=== PATIENT | male | born 1940 | race African-American/Black ===

== ENCOUNTER → 2017-07-28 | Outpatient (CLI) | payer MEDICARE, OTHER | LOC: OD 09:32 | PROVIDERS: ATTEND Urology | DX: C61 Malignant neoplasm of prostate (principal); I10 Essential (primary) hypertension | CPT/HCPCS: 36415; 84066; 84153 ==

== ENCOUNTER → 2017-08-19 | Outpatient (CLI) | payer MEDICARE, OTHER ==
--- NOTE | 2017-08-19 14:56 | RADIOLOGY REPORT (SQ) ---
EXAM DESCRIPTION: NM WHOLE BODY BONE SCAN COMPLETED DATE/TIME: 08/19/2017 12:10 pm REASON FOR STUDY: I10 ESSENTIAL (PRIMARY) HYPERTENSION M19.90 UNSPECIFIED OSTEOARTHRITIS, UNS C61 M ALIGNANT NEOPLASM OF PROSTATE I10 ESSENTIAL (PRIMARY) HYPERTENSION M19.90 UNSPECIFIED OSTEOARTHRITI S, UNSPECIFIED SITE COMPARISON: No films available for comparison RADIONUCLIDE AND DOSE: 21.7 millicuries Tc99m MDP. The route of agent administration: Intravenous. ADDITIONAL DRUGS AND DOSES: None. TECHNIQUE: Routine delayed images at 3 hours post radionuclide injection acquired of the bony skelet on including anterior and posterior whole-body projections and additional focused images as needed. LIMITATIONS: None. FINDINGS: BONES: Bandlike increased uptake at the T6 level could indicate compression deformity. Minimal increased uptake at the acromioclavicular joints, shoulders, and ankles likely related to ost eoarthritis. Bare area at the right femoral head and right knee likely from joint hardware KIDNEYS: Symmetric excretion without obstruction. OTHER: No other significant finding. IMPRESSION: Bandlike increased uptake in the T6 level could indicate a compression deformity. No increased uptake around the right hip or right knee replacements worrisome for loosening or infect ion COMMENT: Quality measure 147: No available prior imaging studies for comparison TECHNICAL DOCUMENTATION: JOB ID: [id number] [employer]- All Rights Reserved
== END ==
LOC: RAD 08:13
PROVIDERS: ATTEND Urology
DX: C61 Malignant neoplasm of prostate (principal); I10 Essential (primary) hypertension
CPT/HCPCS: 78306; A9561; Q9969

== ENCOUNTER 2018-05-02 09:04 | Emergency (ER) | payer MEDICARE, OTHER ==
[2018-05-02 09:26] LABS: ABSOLUTE EOSINOPHILS # (AUTO) 0.1 10^3/uL (0.0-0.6); ABSOLUTE LYMPHOCYTES (AUTO) 2.3 10^3/uL (0.5-4.7); ABSOLUTE MONOCYTES (AUTO) 0.4 10^3/uL (0.1-1.4); ABSOLUTE NEUT (AUTO) 2.4 10^3/uL (1.7-8.2); BASOPHILS % (AUTO) 0.7 % (0-2); EOSINOPHILS % (AUTO) 2.7 % (0-6); HEMATOCRIT 46.9 % (37.9-51.0); HEMOGLOBIN 15.8 g/dL (13.5-17.0); LYMPHOCYTES % (AUTO) 42.9 % (13-45); MEAN CORPUSCULAR HEMOGLOBIN 32.3 pg (27.0-33.4); MEAN CORPUSCULAR HGB CONC 33.8 g/dL (32.0-36.0); MEAN CORPUSCULAR VOLUME 96 fl (80-97); MONOCYTES % (AUTO) 8.1 % (3-13); PLATELET COUNT 170 10^3/uL (150-450); RED CELL DISTRIBUTION WIDTH 14.1 % (11.5-14.0); SEGMENTED NEUTROPHILS % (AUTO) 45.6 % (42-78); TOTAL CELLS COUNTED % (AUTO) 100 %; WHITE BLOOD COUNT 5.3 10^3/uL (4.0-10.5)
--- NOTE | 2018-05-02 09:29 | RADIOLOGY REPORT (SQ) ---
EXAM DESCRIPTION: CT HEAD WITHOUT COMPLETED DATE/TIME: 05/02/2018 9:12 am REASON FOR STUDY: bed 18 stroke alert COMPARISON: None. TECHNIQUE: Axial images acquired through the brain without intravenous contrast. Images reviewed wi th bone, brain and subdural windows. Additional sagittal and coronal reconstructions were generated. Images stored on PACS. All CT scanners at this facility use dose modulation, iterative reconstruction, and/or weight based d osing when appropriate to reduce radiation dose to as low as reasonably achievable (ALARA). [facility]: Dose Right [facility]: CareDose [facility]: Dose Right [facility]: Teradose 4D [facility]: TeamPages RADIATION DOSE: 53 mGy. LIMITATIONS: None. FINDINGS: VENTRICLES: Normal size and contour. CEREBRUM: No masses. No hemorrhage. No midline shift. No evidence for acute infarction. Moderate d iffuse bifrontal and biparietal chronic appearing small vessel ischemic change in the hemispheric whi te matter. CEREBELLUM: No masses. No hemorrhage. No alteration of density. No evidence for acute infarction. EXTRAAXIAL SPACES: No fluid collections. No masses. ORBITS AND GLOBE: No intra- or extraconal masses. Normal contour of globe without masses. CALVARIUM: No fracture. PARANASAL SINUSES: No fluid or mucosal thickening. SOFT TISSUES: No mass or hematoma. OTHER: No other significant finding. IMPRESSION: Moderate chronic white matter disease. No acute intracranial hemorrhage mass effect or midline shift. No CT evidence of acute large territo ry ischemic change EVIDENCE OF ACUTE STROKE: NO. COMMENT: Pertinent findings on the imaging study reported as a CRITICAL RESULT to Dr Osuna at09:20 on 05/02/2018. Category of Critical Result: CT code stroke Quality ID # [id number]: Final reports with documentation of one or more dose reduction techniques (e.g., Au tomated exposure control, adjustment of the mA and/or kV according to patient size, use of iterative reconstruction technique) TECHNICAL DOCUMENTATION: JOB ID: [id number] [employer]- All Rights Reserved Reading location - IP/workstation name: [email or web address]
--- NOTE | 2018-05-02 09:29 | ER Document Report ---
ED [employer]te[employer]/Exc Criteria - Date/Time patient last known well: Date/Time: 11 pm LAST NIGHT - Date/Time patient arrived in ED: _: 0900 - Inclusion Criteria: 1: Patient presented to ED within 3 hours of acute ischemic stroke symptom onset ? -: No 2: Did baseline CT exclude intracranial hemorrhage and/or other risk factors? -: Yes 3: Is the age of the patient 18 years of age or greater? -: Yes : If any of the above questions are answered "NO" then stop, patient is not a candidate for Alteplase, : If all of the above questions are answered "YES" then continue with Exclusion Criteria. - Exclusion Criteria: 1: Is there evidence of intracranial hemorrhage on baseline CT? -: No 2: Is there suspicion of subarachnoid hemorrhage (even if CT negative)? -: No 3: Is there a history of serious head trauma, recent previous stroke or AR within 3 months? -: Yes 4: Does the patient have a clinical presentation consistent with AR or post-AR pericarditis? -: No 5: Is there history of intracranial hemorrhage? -: No 6: On repeated measurement is Systolic BP greater than 185mmHg or Diastolic BP greater that 110 mmHg and is aggressive treatment needed to reduce blood pressure to these limits (e.g. constant infusion of an anti-hypertensive)? -: No 7: Did the patient awake with stroke symptoms? -: Yes 8: Has the patient had a lumbar puncture or an arterial puncture at a non- compressile site within 7 days? -: No 9: With in the last 14 days did the patient have surgery or major trauma? -: No 10: Is the patient or less than 2 weeks? -: No 11: Was there any active bleeding or acute trauma? -: No 12: Does the patient have intracranial neoplasm, arteriovenous malformation or aneurysm? -: No 13: Does the patient have abnormal glucose (less than 50 or greater than 400mg/ dl)? Record glucose in Comment. -: No 14: Patient has rapidly improving symptoms at the time Alteplase is to be Administered. -: No 15: Does the patient have any risks for bleeding, including but not limited to: a.: Current use of Coumadin with PT greater than 15 seconds or INR greater than 1.7. b.: Current use of Pradaxa (Dabigatran). c.: Heparin administereed within the past 48 hours and PTT elevated. d.: Platelet count less than 100,000/mm. e.: Major surgery or serious trauma within 14 days. f.: Gastrointestinal or gynecological urinary bleeding within 14 days. g.: Myocardial Infarction (AR) within 3 months. -: Yes : If the answer to any of the above questions is "YES" then stop, the patient is not a candidate for Alteplase. : If the answer to all of the above questions is "NO" then the patient may be eligible for the Administration of Alteplase. : If the patient is noted to have seizure activity at onset of Stroke symptoms; Consult Neurologist for further evaluation. - The patient is: -: Included and is eligible to receive Alteplase. *Initiate bed placement at higher level of care* Reviewed risks & benefits of thrombolytic therapy: I have reviewed the risks and benefits of thrombolytic therapy with the patient and/or his/her family. -: Excluded and not eligible to receive Alteplase for the above exclusions. -: Excluded and not eligible to receive Alteplase for other reasons (specify in comments): - Diagnosis of TIA: -: Patient presented with transient symptoms that are now resolved and no other neurologic findings are currently present. List symptoms in comments. -: Patient is NOT a candidate for tPA. -: ____(put name in comment) has been consulted for admission and continued evaluation of risk factor assessment.
[2018-05-02 09:30] LABS: INTERNATIONAL RATION (INR) 0.98
--- NOTE | 2018-05-02 09:30 | RADIOLOGY REPORT (SQ) ---
EXAM DESCRIPTION: CHEST SINGLE VIEW COMPLETED DATE/TIME: 05/02/2018 9:17 am REASON FOR STUDY: bed 18 stroke alert COMPARISON: None. EXAM PARAMETERS: NUMBER OF VIEWS: One view. TECHNIQUE: Single frontal radiographic view of the chest acquired. RADIATION DOSE: NA LIMITATIONS: None. FINDINGS: LUNGS AND PLEURA: No opacities, masses or pneumothorax. No pleural effusion. MEDIASTINUM AND HILAR STRUCTURES: No masses. Contour normal. HEART AND VASCULAR STRUCTURES: Heart normal in size. Normal vasculature. BONES: No acute findings. Old left posterior 6th and 7th rib fractures HARDWARE: None in the chest. OTHER: No other significant finding. IMPRESSION: NO ACUTE RADIOGRAPHIC FINDING IN THE CHEST. TECHNICAL DOCUMENTATION: JOB ID: [id number] [employer]- All Rights Reserved Reading location - IP/workstation name: [email or web address]
[2018-05-02 09:31] LABS: PARTIAL THROMBOPLASTIN TIME 27.9 SEC (23.5-35.8)
--- NOTE | 2018-05-02 09:31 | ER Document Report ---
ED General - General Chief Complaint: S/S of Possible Stroke Stated Complaint: POSSIBLE STROKE Time Seen by Provider: 05/02/18 09:17 Mode of Arrival: Medic Information source: Patient, Relative TRAVEL OUTSIDE OF THE [place] IN LAST 30 DAYS: No - HPI Patient complains to provider of: STROKE Onset: Other - 78-year-old male with a history of hypertension as well as atrial fibrillation currently on Eliquis presents for evaluation of strokelike symptoms with an unknown onset, he had gone to bed last night at approximately 11 PM at which she was last seen well, this morning his fiance notes that upon waking up at around 8:30 AM the patient had been up doing some household activities she found him on the couch sitting he was unable to speak and unable to move his right arm or walk. She is uncertain what time he had gotten up in the night. She notes that he had a fall yesterday and hit his head in the shower , he was able to get up thereafter and had no other symptoms. - Related Data Allergies/Adverse Reactions: No Known Allergies Allergy (Verified 05/02/18 09:19) Past Medical History - General Information source: Patient, Relative, Emergency Med Personnel - Social History Smoking Status: Current Every Day Smoker Family History: Reviewed & Not Pertinent Review of Systems - Review of Systems -: Yes ROS unobtainable due to patient's medical condition Physical Exam - Vital signs Vitals: Pulse Ox 97 05/02/18 09:15 Course - Re-evaluation Re-evalutation: Emergently evaluated this patient in CT scanner, this is a [age]-year-old man who presents for evaluation of a aphasia, confusion, and inability to move his right arm. Examination this patient's NIH stroke scale is a 12. He is able to breathe spontaneously, there is no sonorous component to his breathing. Per his spouse the last time she saw him normal was yesterday, approximately 10 hours prior to arrival. Emergent CT did not demonstrate any obvious intracranial hemorrhage. Obtained EKG from patient which did demonstrate atrial fibrillation. Believe this patient likely has an ischemic stroke, will consult for further evaluation. 05/02/18 09:30 NIH stroke scale12 Called [facility] transfer line 9:20 Patient without an obvious last known well within the last 4 hours, is on Eliquis, has had head trauma in the last 2 days thus believe he is a poor candidate at this time for TPA. We will discuss with neurologist. 05/02/18 10:[address] Cesia TODD at [facility], they are in agreement at this time the patient is a poor candidate for TPA administration, as he has had symptoms less than 24 hours we will plan for emergent transfer via air care for possible intervention. On transfer patient noted to have a slightly worsening expressive aphasia what now seems to be some element of receptive aphasia. His stroke scale continues to be approximately 12. Patient to be transferred via critical care transport, continued monitoring without any intervention undertaken at this time. His blood pressure is less than 170, he is received a per rectum aspirin at this time. The time of transfer this patient was hemodynamically stable with a progressively worsening NIH score. He was persistently 12 with a now receptive aphasia in addition to expressive aphasia. Patient to be transported for further intervention at [facility]. Deferred administration of TPA per reasons above. - Vital Signs Vital signs: Temp Pulse Resp BP Pulse Ox 98.1 F 96 18 165/106 H 98 05/02/18 10:23 05/02/18 09:17 05/02/18 10:21 05/02/18 10:21 05/02/18 10:21 - Laboratory Result Diagrams: 05/02/18 09:10 05/02/18 09:10 Laboratory results interpreted by me: 05/02/18 05/02/18 05/02/18 09:10 09:10 09:23 RDW 14.1 H Chloride 109 H Creatinine 1.38 H Est GFR (Non-Af Amer) 50 L Glucose 111 H POC Glucose 119 H Critical Care Note - Critical Care Note Total time excluding time spent on procedures (mins): 45 Discharge - Discharge Clinical Impression: CVA (cerebral vascular accident) Qualifiers: CVA mechanism: unspecified Qualified Code(s): I63.9 - Cerebral infarction, unspecified Condition: Critical Disposition: [facility] Referrals: ANDREW ISLAS MD [NO LOCAL MD] - Follow up as needed
[2018-05-02 09:33] LABS: PROTHROMBIN TIME 13.5 SEC (11.4-15.4)
[2018-05-02] MEDS ORDERED: ASPIRIN 300 MG SUPP, RECTAL PR ONE (09:43)
[2018-05-02 09:46] LABS: ALANINE AMINOTRANSFERASE 21 U/L (21-72); ALBUMIN 4.2 g/dL (3.5-5.0); ALKALINE PHOSPHATASE 61 U/L (38-126); ANION GAP 10 (5-19); ASPARTATE AMINO TRANSFERASE 27 U/L (17-59); BILIRUBIN,DIRECT 0.3 mg/dL (0.0-0.4); BILIRUBIN,TOTAL 1.1 mg/dL (0.2-1.3); BLOOD UREA NITROGEN 14 mg/dL (7-20); CALCIUM 8.8 mg/dL (8.4-10.2); CARBON DIOXIDE 25 mmol/L (22-30); CHLORIDE 109 mmol/L (98-107); CREATINE KINASE 168 U/L (55-170); GLUCOSE 111 mg/dL (75-110); POTASSIUM 3.8 mmol/L (3.6-5.0); SODIUM 144.4 mmol/L (137-145); TOTAL PROTEIN 7.9 g/dL (6.3-8.2)
[2018-05-02 10:17] LABS: TROPONIN I < 0.012 ng/mL
[2018-05-02 10:24] VITALS: BP 165/106
--- NOTE | 2018-05-02 10:53 | EKG REPORT ---
SEVERITY:- ABNORMAL ECG - ATRIAL FIBRILLATION, V-RATE 60-138 NONSPECIFIC T ABNORMALITIES, DIFFUSE LEADS : Confirmed by: Roger Ricketts MD 02-May-2018 10:52:30
== END 2018-05-02 10:33 | disposition short-term general hospital (02) ==
LOC: ER 09:04
DX: I63.9 Cerebral infarction, unspecified (principal); R47.9 Unspecified speech disturbances; W18.2XXA Fall in (into) shower or empty bathtub, initial encounter; F17.200 Nicotine dependence, unspecified, uncomplicated; I10 Essential (primary) hypertension; Z79.01 Long term (current) use of anticoagulants; I48.91 Unspecified atrial fibrillation
CPT/HCPCS: 93005; 99285; 36415; 82553; 82962; 82550; 85025; 85610; 85730; 80053; 84484; 71045; 70450; 93010; A9270; J3490

== ENCOUNTER 2018-08-14 09:22 | Emergency (ER) | payer MEDICARE, OTHER ==
[2018-08-14 09:30] VITALS: BP 128/76
--- NOTE | 2018-08-14 09:47 | ER Document Report ---
HPI - HPI Patient complains to provider of: Medication refill Time Seen by Provider: 08/14/18 09:32 Onset: This morning Onset/Duration: Gradual Quality of pain: No pain Pain Level: Denies Context: Patient states that he recently had a stroke in April of this year and had gone to rehab until last month. Patient states when he was in rehab the physician at that facility was riding his medications. Patient states since being discharged he has had difficulty in getting up with his primary doctor as they had changed their hours and another physician is covering. Patient states that he is out of his Eliquis and amlodipine. Patient states he has all of his other medications. Patient denies any problems or complaints aside from needing his medications refilled. Associated Symptoms: None Exacerbated by: Denies Relieved by: Denies Similar symptoms previously: No Recently seen / treated by doctor: No - ROS ROS below otherwise negative: Yes Systems Reviewed and Negative: Yes All other systems reviewed and negative - CONSTITUTIONAL Constitutional: DENIES: Fever, Chills - RESPIRATORY Respiratory: DENIES: Trouble Breathing, Coughing - GASTROINTESTINAL Gastrointestinal: DENIES: Nausea - DERM Skin Color: Normal Skin Problems: None Past Medical History - General Information source: Patient - Social History Smoking Status: Never Smoker Frequency of alcohol use: None Drug Abuse: None Lives with: Family Family History: Reviewed & Not Pertinent - Past Medical History Cardiac Medical History: Reports: Hx Hypercholesterolemia, Hx Hypertension Neurological Medical History: Reports: Hx Cerebrovascular Accident Renal/ Medical History: Denies: Hx Peritoneal Dialysis Surgical Hx: Negative Vertical Provider Document - CONSTITUTIONAL Agree With Documented VS: Yes Exam Limitations: No Limitations General Appearance: WD/WN, No Apparent Distress - INFECTION CONTROL TRAVEL OUTSIDE OF THE [place] IN LAST 30 DAYS: No - HEENT HEENT: Atraumatic, Normocephalic - NECK Neck: Normal Inspection, Supple - RESPIRATORY Respiratory: Breath Sounds Normal, No Respiratory Distress - CARDIOVASCULAR Cardiovascular: Regular Rate, Regular Rhythm - GI/ABDOMEN Gastrointestinal: Abdomen Soft - BACK Back: Normal Inspection - NEURO Level of Consciousness: Awake, Alert, Appropriate Motor/Sensory: No Motor Deficit - DERM Integumentary: Warm, Dry, No Rash Course - Re-evaluation Re-evalutation: 08/14/[address] Pitts who recommends giving patient a 2-week supply of his medications to bridge until he can see his doctor. - Vital Signs Vital signs: Temp Pulse Resp BP Pulse Ox 97.3 F 71 18 128/76 H 98 08/14/18 09:26 08/14/18 09:26 08/14/18 09:26 08/14/18 09:26 08/14/18 09:26 Discharge - Discharge Clinical Impression: Medication refill, History of CVA (cerebrovascular accident) HTN (hypertension) Qualifiers: Hypertension type: unspecified Qualified Code(s): I10 - Essential (primary) hypertension Condition: Stable Disposition: HOME, SELF-CARE Additional Instructions: Return immediately for any new or worsening symptoms Followup with your primary care provider, call tomorrow to make a followup appointment Your primary doctor needs to be the one to refill your medications, call their office tomorrow and let them know that you were out of your medications and need a refill. Prescriptions: Amlodipine Besylate [Norvasc 2.5 mg Tablet] 2.5 mg PO DAILY #15 tablet Apixaban [Eliquis 5 mg Tablet] 5 mg PO BID #30 tablet Referrals: LUCY BLISS DO [Primary Care Provider] - Follow up as needed YUNG DUENAS DO [NO LOCAL MD] - Follow up tomorrow
== END 2018-08-14 10:00 | disposition home or self-care (01) ==
LOC: ER 09:22
DX: Z76.0 Encounter for issue of repeat prescription (principal); Z86.73 Personal history of transient ischemic attack (TIA), and cerebral infarction without residual deficits; T45.516A Underdosing of anticoagulants, initial encounter; I10 Essential (primary) hypertension; T46.1X6A Underdosing of calcium-channel blockers, initial encounter; Z91.128 Patient's intentional underdosing of medication regimen for other reason; Z91.14 Patient's other noncompliance with medication regimen
CPT/HCPCS: 99281

== ENCOUNTER 2019-01-12 23:42 | Emergency (ER) | payer MEDICARE, OTHER ==
--- NOTE | 2019-01-13 06:44 | RADIOLOGY REPORT (SQ) ---
EXAM: CT head without IV contrast CLINICAL DATA: fall on thinners TECHNICAL DATA: Multiple axial CT images of the brain were performed followed by sagittal and coronal reconstructed images. The CT study is performed according to ALARA (as low as reasonably achievable) or ALARA/IMAGE GENTLY, with automatic adjustment of mA and/or kV according to patient size. Performed on: 01/13/2019 00:00 Comparisons: Head CT performed on 05/02/2018. FINDINGS: There is no evidence of mass, acute mass effect or midline shift. There are no acute extra-axial fluid collections. There is no evidence of acute intracranial hemorrhage. The cerebral sulci and ventricles are prominent consistent with moderate cerebral volume loss. There are moderate subcortical and periventricular areas of low attenuation most consistent with moderate chronic microangiopathy. There is encephalomalacia in the posterior left frontal lobe. There is trace mucosal thickening of the paranasal sinuses. The mastoid air cells are clear. The orbital contents are grossly unremarkable. No acute osseous abnormalities are identified. No focal soft tissue abnormalities are identified. IMPRESSION: 1. There is no evidence of acute intracranial pathology. 2. Moderate cerebral volume loss with findings consistent with chronic microangiopathy. There is encephalomalacia in the posterior left frontal lobe which is new since the prior study.
--- NOTE | 2019-01-13 06:52 | RADIOLOGY REPORT (SQ) ---
EXAM: CT cervical spine without IV contrast CLINICAL DATA: 78-year-old male status post fall. TECHNICAL DATA: Multiple high-resolution thin axial CT images were performed through the cervical spine followed by sagittal and coronal reconstructed images. The CT study is performed according to ALARA (as low as reasonably achievable) or ALARA/IMAGE GENTLY, with automatic adjustment of mA and/or kV according to patient size. Performed on: 01/13/2019 at 6:08 AM COMPARISONS: None. FINDINGS: The cervical vertebrae are normal in height. There is straightening of the normal cervical lordosis. There is marked disc space narrowing throughout the cervical spine most pronounced at C3-C4 through C7-T1. Bone mineralization is normal. The atlanto-axial articulation is preserved and the odontoid process is intact. There is normal alignment of the facet joints on the parasagittal images. There is no evidence of acute fracture or subluxation. There is multilevel mild to moderate canal stenosis secondary to multiple disc osteophyte complexes. Stenosis is most pronounced at C4-C5 and C5-C6. There is multilevel bilateral neural foraminal stenosis secondary to uncovertebral joint and facet joint hypertrophy.. The paravertebral and paraspinal soft tissues are unremarkable. The lung apices are clear. IMPRESSION: 1. No evidence of acute osseous injury involving the cervical spine. 2. Straightening of the normal cervical lordosis. 3. 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
[2019-01-13 07:33] LABS: ABSOLUTE EOSINOPHILS # (AUTO) 0.1 10^3/uL (0.0-0.6); ABSOLUTE MONOCYTES (AUTO) 0.5 10^3/uL (0.1-1.4); ABSOLUTE NEUT (AUTO) 1.9 10^3/uL (1.7-8.2); BASOPHILS % (AUTO) 0.9 % (0-2); HEMATOCRIT 46.6 % (37.9-51.0); HEMOGLOBIN 15.3 g/dL (13.5-17.0); MEAN CORPUSCULAR HEMOGLOBIN 31.3 pg (27.0-33.4); MEAN CORPUSCULAR HGB CONC 32.8 g/dL (32.0-36.0); MEAN CORPUSCULAR VOLUME 96 fl (80-97); MONOCYTES % (AUTO) 10.1 % (3-13); PLATELET COUNT 151 10^3/uL (150-450); RED BLOOD COUNT 4.88 10^6/uL (4.35-5.55); RED CELL DISTRIBUTION WIDTH 14.5 % (11.5-14.0); TOTAL CELLS COUNTED % (AUTO) 100 %; WHITE BLOOD COUNT 4.5 10^3/uL (4.0-10.5)
--- NOTE | 2019-01-13 07:41 | EKG REPORT ---
SEVERITY:- ABNORMAL ECG - ATRIAL FIBRILLATION, V-RATE 66-115 VENTRICULAR PREMATURE COMPLEX NONSPECIFIC T ABNORMALITIES, LATERAL LEADS, UNCHANGED : Confirmed by: Roger Ricketts MD 13-Jan-2019 07:40:19
[2019-01-13 07:46] LABS: ALANINE AMINOTRANSFERASE 26 U/L (21-72); ALKALINE PHOSPHATASE 76 U/L (38-126); ANION GAP 9 (5-19); ASPARTATE AMINO TRANSFERASE 21 U/L (17-59); BILIRUBIN,DIRECT 0.2 mg/dL (0.0-0.4); BILIRUBIN,TOTAL 0.8 mg/dL (0.2-1.3); BLOOD UREA NITROGEN 13 mg/dL (7-20); CALCIUM 9.2 mg/dL (8.4-10.2); CARBON DIOXIDE 26 mmol/L (22-30); CHLORIDE 107 mmol/L (98-107); CREATINE KINASE 153 U/L (55-170); GLUCOSE 74 mg/dL (75-110); TOTAL PROTEIN 7.2 g/dL (6.3-8.2)
[2019-01-13 07:48] LABS: ALCOHOL < 10 mg/dL (NONE DETECTED)
[2019-01-13 08:02] LABS: APPEARANCE,URINE CLEAR; BILIRUBIN,URINE NEGATIVE (NEGATIVE); COLOR,URINE YELLOW; GLUCOSE, URINE NEGATIVE (NEGATIVE); KETONES,URINE NEGATIVE (NEGATIVE); LEUKOCYTE ESTERASE,URINE NEGATIVE (NEGATIVE); NITRITE,URINE NEGATIVE (NEGATIVE); PROTEIN,URINE NEGATIVE (NEGATIVE); URINE SPECIFIC GRAVITY 1.016
[2019-01-13 08:31] VITALS: BP 157/110
--- NOTE | 2019-01-13 14:21 | ER Document Report ---
Entered by ELIAS BEST SCRIBE 01/13/19 0658 Acting as scribe for:JOE ALVARES MD ED Fall - General Chief Complaint: Fall Stated Complaint: FALL/ETOH Time Seen by Provider: 01/13/19 06:49 Notes: Patient is a 78-year-old male that presents the emergency department complaining of a fall after drinking alcohol. Patient states that he had about a 5th of [place], and he lost his balance then he "rolled into" the bathtub and could not get up. Patient states that he had trouble getting up due to left sided deficit due to a cerebrovascular accident he had in April 2018. Patient states that his found him and helped him up then brought him to the emergency department at 23:00 last night. Patient denies any pain. Patient states that the only medication he is taking is eliquis for his atrial-fibrillation. TRAVEL OUTSIDE OF THE [place] IN LAST 30 DAYS: No - Related data Allergies/Adverse Reactions: No Known Allergies Allergy (Verified 05/02/18 09:19) Past Medical History - General Information source: Patient - Social History Smoking Status: Current Every Day Smoker Frequency of alcohol use: Heavy Drug Abuse: None Family History: Reviewed & Not Pertinent Patient has suicidal ideation: No Patient has homicidal ideation: No - Past Medical History Cardiac Medical History: Reports: Hx Hypercholesterolemia, Hx Hypertension Neurological Medical History: Reports: Hx Cerebrovascular Accident Review of Systems - Review of Systems Constitutional: No symptoms reported EENT: No symptoms reported Cardiovascular: No symptoms reported Respiratory: No symptoms reported Gastrointestinal: No symptoms reported Genitourinary: No symptoms reported Male Genitourinary: No symptoms reported Musculoskeletal: No symptoms reported Skin: No symptoms reported Hematologic/Lymphatic: No symptoms reported Neurological/Psychological: See HPI, Other - Loss of balance -: Yes All other systems reviewed and negative Physical Exam - Vital signs Vitals: Temp Pulse Resp BP Pulse Ox 98.1 F 82 16 114/74 98 01/13/19 00:03 01/13/19 00:03 01/13/19 00:03 01/13/19 00:03 01/13/19 00:03 - Notes Notes: Physical Exam: General: Alert, appears well. HEENT: Normocephalic. Atraumatic. PERRL. Extraocular movements intact. Oropharynx clear. Neck: Supple. Non-tender. Respiratory: No respiratory distress. Clear and equal breath sounds bilaterally. Cardiovascular: Regular rate and rhythm. Abdominal: Normal Inspection. Non-tender. No distension. Normal Bowel Sounds. Back: Non-tender. No deformity or step off. Extremities: Moves all four extremities. Upper extremities: Edema in right hand. Normal ROM. Lower extremities: Normal inspection. No edema. Normal ROM. Neurological: Normal cognition AAOx4. Preexisting right sided deficits at baseline. Slurred speech. Psychological: Normal affect. Normal Mood. Skin: Warm. Dry. Normal color. Course - Vital Signs Vital signs: Temp Pulse Resp BP Pulse Ox 97.4 F 70 16 157/110 H 99 01/13/19 08:30 01/13/19 08:30 01/13/19 08:30 01/13/19 08:30 01/13/19 08:30 - Laboratory Result Diagrams: 01/13/19 07:12 01/13/19 07:12 Laboratory results interpreted by me: 01/13/19 01/13/19 01/13/19 07:12 07:12 07:41 RDW 14.5 H Glucose 74 L Urine Urobilinogen 4.0 H - Diagnostic Test Radiology reviewed: Image reviewed, Reports reviewed - CT scans of the cervical spine and the head do not show acute processes. They show chronic changes. - EKG Interpretation by Me EKG shows normal: [place], Intervals, QRS Complexes. abnormal: ST-T Waves - Specific lateral T abnormalities Rate: Normal - 90 Rhythm: A.Fib Discharge - Discharge Clinical Impression: CVA, old, ataxia, Chronic atrial fibrillation Fall Qualifiers: Encounter type: initial encounter Qualified Code(s): W19.XXXA - Unspecified fall, initial encounter Condition: Stable Disposition: HOME, SELF-CARE Additional Instructions: No injuries were detected today from your fall. You should reconsider consuming alcohol, since you already have difficulty with balance and walking due to your stroke. Eat a good breakfast when you get home, drink plenty fluids, and get plenty of rest today. Follow-up with your doctor if any ongoing problems. RETURN TO THE EMERGENCY ROOM IF ANY NEW OR WORSENING SYMPTOMS. Scribe Attestation: 01/13/19 08:05 I personally performed the services described in the documentation, reviewed and edited the documentation which was dictated to the scribe in my presence, and it accurately records my words and actions. I personally performed the services described in the documentation, reviewed and edited the documentation which was dictated to the scribe in my presence, and it accurately records my words and actions.
== END 2019-01-13 08:31 | disposition home or self-care (01) ==
LOC: ER 23:42
DX: Z04.3 Encounter for examination and observation following other accident (principal); I48.91 Unspecified atrial fibrillation; I48.2 Chronic atrial fibrillation; Z79.01 Long term (current) use of anticoagulants; I69.393 Ataxia following cerebral infarction; F17.200 Nicotine dependence, unspecified, uncomplicated; I10 Essential (primary) hypertension; R47.81 Slurred speech
CPT/HCPCS: 36415; 70450; 72125; 80053; 80307; 81001; 82550; 84484; 85025; 93005; 93010; 99284

== ENCOUNTER 2019-04-11 06:20 | Day surgery (SDC) | payer MEDICARE, OTHER ==
[~2019-04-11 06:20] MED LIST: BUPIVACAINE HCL 0.75% INJ/PF (7.5 MG/1 ML) 10 ML SDV OS PRN; KETOROLAC TROMETHAMINE 0.45% 4 DROP/0.4 ML DROPERETTE OS PRN; LIDOCAINE 4% INJ/PF (40 MG/ML) 5 ML AMPUL OS PRN
[2019-04-11] MEDS ORDERED: FENTANYL CITRATE INJ/PF 100 MCG/2 ML AMPUL ONE (06:44)
[2019-04-11] MEDS ORDERED: MIDAZOLAM 2 MG/2 ML INJ ONE (06:44)
[2019-04-11] MEDS: CYCLOPENTOLATE 0.2%/PHENYLEPHRINE 1% OPH SOLN 2 ML OS PRN ×3 (06:50→07:10)
[2019-04-11] MEDS: TROPICAMIDE 1% OPH SOLN 3 ML OS PRN ×3 (06:50→07:10)
[2019-04-11] MEDS: BESIFLOXACIN HCL 0.6% OPH SUSP 5 ML BOTTLE OS PRN ×4 (06:50→07:58)
[2019-04-11] MEDS: TETRACAINE HCL 0.5% OPH SOLN 4 ML OS PRN ×2 (06:51→07:10)
[2019-04-11] MEDS ORDERED: EPINEPHRINE INJ/PF 1 MG/1 ML AMPULE ONE (07:16)
[2019-04-11] MEDS ORDERED: LIDOCAINE 1% INJ-PF (10 MG/ML) 30 ML SDV ONE (07:16)
[2019-04-11] MEDS ORDERED: CHONDR SU A NA/HYALUR INTRAOC KIT (SURGICARE) ONE (07:17)
[2019-04-11] MEDS: DORZOLAMIDE HCL 2%/TIMOLOL MALEAT 0.5% OPH SOLN 10 ML OS PRN ×2 (07:58)
--- NOTE | 2019-04-11 13:04 | Operative Report ---
Operative Report-[facility] Operative Report: DATE OF SURGERY: April 11, 2019 PREOPERATIVE DIAGNOSIS: CATARACT, LEFT EYE. POSTOPERATIVE DIAGNOSIS: CATARACT, LEFT EYE. PROCEDURE PERFORMED: PHACOEMULSIFICATION WITH POSTERIOR CHAMBER INTRAOCULAR LENS, LEFT EYE. Intraocular Lens Model : SN 60 WF 20.0 Total Phaco Time: 11.5 CDE SURGEON: KOBE MORENO MD ANESTHESIA: TOPICAL WITH MAC. INDICATIONS FOR SURGERY: Difficulty reading small print difficulty with night driving PROCEDURE: The patient was brought to the Operating Room and placed on the operative table. Following tetracaine drops, topical anesthesia was administered. This consisted of instrument wipe pledgets soaked in a solution of 4% Xylocaine mixed with 0.75% Marcaine in a 1:2 ratio. A 2 x 1 cm pledget was placed in the superior fornix. A 1 x 1 cm pledget was placed in the inferior fornix. The eye was patched shut for 5 minutes. The patch was removed. The eye was sterilely prepped and draped in the usual manner. Lid speculum was placed in the eye. The pledgets were removed. 4-0 black silk sutures were placed around the superior and the inferior rectus muscles to be used as traction. A conjunctival peritomy was made at the 10 o'clock position. Hemostasis was obtained with bipolar cautery. A posterior limbal groove was created using a crescent knife and dissected anteriorly towards the cornea. A sharp point blade was used to create a paracentesis site at the 2 o'clock position. 0.2 cc non preserved Lidocaine was injected into the anterior chamber. A 2.4 mm keratome was used to enter the anterior chamber through the groove. Viscoelastic was injected into the anteriorchamber. An anterior capsulotomy was performed using Utrata forceps in acapsulorrhexis fashion. Hydrodissection and hydrodelineation were performed. Phacoemulsification was performed in olyngj-zli-vtwpodo technique. Following this, the I/A unit was used to remove residual cortex. Viscoelastic was injected into the capsular bag. The Intraocular lens was placed in the capsular bag. The I/A unit was used to remove residual viscoelastic. The wound was seen to be watertight under high and low pressure, and no sutures were placed. The intraocular lens was well centered. The pressure was adjusted in the eye to normal pressure. The 4-0 black silk sutures and lid speculum were removed. The eye was shielded after Besivance and Cosopt drops were placed. The patient tolerated the procedure well and was sent to the Recovery Room in good condition.
--- NOTE | 2019-04-11 13:05 | PDOC DISCHARGE SUMMARY ---
Discharge Summary[facility] Discharge Summary: DATE: April 11, 2019 FINAL DIAGNOSIS: CATARACT, LEFT EYE PROCEDURE: Cataract surgery with intraocular lens implant left eye HOSPITAL COURSE: The patient will be discharged to home. The patient is instructed to resume preoperative medications, take Tylenol as needed for discomfort, to keep the eye shielded, They should use the prescribed antibiotic, NSAID, and steroid at 3 PM and 8 PM, and to follow up in my office in 1 day.
== END 2019-04-11 08:45 | disposition home or self-care (01) ==
LOC: SC 06:20
PROVIDERS: ATTEND Ophthalmology
DX: H25.813 Combined forms of age-related cataract, bilateral (principal); H40.053 Ocular hypertension, bilateral; H52.4 Presbyopia; I10 Essential (primary) hypertension; E78.00 Pure hypercholesterolemia, unspecified; Z79.899 Other long term (current) drug therapy; I69.851 Hemiplegia and hemiparesis following other cerebrovascular disease affecting right dominant side; Z79.01 Long term (current) use of anticoagulants; I48.91 Unspecified atrial fibrillation
CPT/HCPCS: 66984; J2250; J3490 ×5; A9270; J0171; J3010

== ENCOUNTER 2019-05-16 08:19 | Day surgery (SDC) | payer MEDICARE, OTHER ==
[~2019-05-16 08:19] MED LIST changes: +BUPIVACAINE HCL 0.75% INJ/PF (7.5 MG/1 ML) 10 ML SDV OD PRN; -BUPIVACAINE HCL 0.75% INJ/PF (7.5 MG/1 ML) 10 ML SDV OS PRN; +CHONDR SU A NA/HYALUR INTRAOC KIT (SURGICARE) ONE; +EPINEPHRINE INJ/PF 1 MG/1 ML AMPULE ONE; +KETOROLAC TROMETHAMINE 0.45% 4 DROP/0.4 ML DROPERETTE OD PRN; -KETOROLAC TROMETHAMINE 0.45% 4 DROP/0.4 ML DROPERETTE OS PRN; +LIDOCAINE 1% INJ-PF (10 MG/ML) 30 ML SDV ONE; +LIDOCAINE 4% INJ/PF (40 MG/ML) 5 ML AMPUL OD PRN; -LIDOCAINE 4% INJ/PF (40 MG/ML) 5 ML AMPUL OS PRN
[2019-05-16] MEDS: TETRACAINE HCL 0.5% OPH SOLN 4 ML OD PRN ×3 (08:54→09:29)
[2019-05-16] MEDS: TROPICAMIDE 1% OPH SOLN 15 ML OD PRN ×3 (08:55→09:16)
[2019-05-16] MEDS: CYCLOPENTOLATE 0.2%/PHENYLEPHRINE 1% OPH SOLN 2 ML OD PRN ×3 (08:55→09:16)
[2019-05-16] MEDS: BESIFLOXACIN HCL 0.6% OPH SUSP 5 ML BOTTLE OD PRN ×4 (08:55→09:53)
[2019-05-16] MEDS ORDERED: MIDAZOLAM 2 MG/2 ML INJ ONE (09:11)
[2019-05-16] MEDS: DORZOLAMIDE HCL 2%/TIMOLOL MALEAT 0.5% OPH SOLN 10 ML OD PRN ×2 (09:53)
--- NOTE | 2019-05-16 13:35 | Operative Report ---
Operative Report[facility] Operative Report: DATE OF SURGERY: 05/16/2019 PREOPERATIVE DIAGNOSIS: CATARACT, RIGHT EYE. POSTOPERATIVE DIAGNOSIS: CATARACT, RIGHT EYE. PROCEDURE PERFORMED: PHACOEMULSIFICATION WITH POSTERIOR CHAMBER INTRAOCULAR LENS, RIGHT EYE. Intraocular Lens Model : SN 6 0 WF 21.0 Total Phaco Time: 8.43 CDE SURGEON: KOBE MORENO MD ANESTHESIA: TOPICAL WITH MAC. INDICATIONS FOR SURGERY: Difficulty driving at night. PROCEDURE: The patient was brought to the Operating Room and placed on the operative table. Following tetracaine drops, topical anesthesia was administered. This consisted of instrument wipe pledgets soaked in a solution of 4% Xylocaine mixed with 0.75% Marcaine in a 1:2 ratio. A 2 x 1 cm pledget was placed in the superior fornix. A 1 x 1 cm pledget was placed in the inferior fornix. The eye was patched shut for 5 minutes. The patch was removed. The eye was sterilely prepped and draped in the usual manner. Lid speculum was placed in the eye. The pledgets were removed. 4-0 black silk sutures were placed around the superior and the inferior rectus muscles to be used as traction. A conjunctival peritomy was made at the 10 o'clock position. Hemostasis was obtained with bipolar cautery. A posterior limbal groove was created using a crescent knife and dissected anteriorly towards the cornea. A sharp point blade was used to create a paracentesis site at the 2 o'clock position. 0.2 cc non preserved Lidocaine was injected into the anterior chamber. A 2.4 mm keratome was used to enter the anterior chamber through the groove. Viscoelastic was injected into the anterior chamber. An anterior capsulotomy was performed using Utrata forceps in a capsulorrhexis fashion. Hydrodissection and hydrodelineation were performed. Phacoemulsification was performed in [id number]-bhh-[id number] technique. Following this, the I/A unit was used to remove residual cortex. Viscoelastic was injected into the capsular bag. The Intraocular lens was placed in the capsular bag. The I/A unit was used to remove residual viscoelastic. The wound was seen to be watertight under high and low pressure, and no sutures were placed. The intraocular lens was well centered. The pressure was adjusted in the eye to normal pressure. The 4-0 black silk sutures and lid speculum were removed. The eye was shielded after Besivance and Cosopt drops were placed. The patient tolerated the procedure well and was sent to the Recovery Room in good condition.
== END 2019-05-16 10:37 | disposition home or self-care (01) ==
LOC: SC 08:19
PROVIDERS: ATTEND Ophthalmology
DX: H25.811 Combined forms of age-related cataract, right eye (principal); Z96.1 Presence of intraocular lens; I10 Essential (primary) hypertension; I48.91 Unspecified atrial fibrillation; Z86.73 Personal history of transient ischemic attack (TIA), and cerebral infarction without residual deficits; Z79.899 Other long term (current) drug therapy; Z79.01 Long term (current) use of anticoagulants
CPT/HCPCS: 66984; 00142; V2632; J2250; J3490 ×5; A9270; J0171; 142

== ENCOUNTER 2020-07-29 04:51 | Emergency (ER) | payer MEDICARE, OTHER ==
--- NOTE | 2020-07-29 05:11 | ER Document Report ---
ED Medical Screen (RME) - General Chief Complaint: S/S of Possible Stroke Stated Complaint: SS OF STROKE Time Seen by Provider: 07/29/20 05:02 Primary Care Provider: LALITHA LONGORIA NP [Primary Care Provider] - Follow up as needed Notes: 80-year-old male comes by EMS from home for chief complaint of weakness. EMS was initially reporting that they were told he had right-sided weakness and slurred speech, however this was found to be chronic from previous CVA. On arrival they report he was diaphoretic and hypotensive in the 80s. Patient has received 600 cc fluid bolus and his blood pressure has normalized. Oxygen saturation 94% on room air upon arrival. Patient denies any complaints. No fever. TRAVEL OUTSIDE OF THE [place] IN LAST 30 DAYS: No - Related Data Allergies/Adverse Reactions: No Known Allergies Allergy (Verified 05/09/19 15:38) Past Medical History - Past Medical History Cardiac Medical History: Reports: Hx Hypercholesterolemia, Hx Hypertension - MEDS Denies: Hx Heart Attack Pulmonary Medical History: Denies: Hx Asthma Neurological Medical History: Reports: Hx Cerebrovascular Accident - 04/2018- SPEECH,RT SIDE-CANE. Denies: Hx Seizures Renal/ Medical History: Denies: Hx Peritoneal Dialysis GI Medical History: Denies: Hx Hepatitis, Hx Hiatal Hernia, Hx Ulcer Infectious Medical History: Denies: Hx Hepatitis Past Surgical History: Denies: Hx Open Heart Surgery, Hx Pacemaker Physical Exam - Respiratory Respiratory status: No respiratory distress Breath sounds: Other - Rales heard in bilateral lower lung bases but no tachypnea or respiratory distress Course - Re-evaluation Re-evalutation: Patient with right-sided weakness and slurred speech but reportedly these are chronic. He is no longer hypotensive, he is alert, cooperative, has no complaints. He has rales on exam. Work-up pending I have greeted and performed a rapid initial assessment of this patient. A comprehensive ED assessment and evaluation of the patient, analysis of test results and completion of the medical decision making process will be conducted by additional ED providers. Doctor's Discharge - Discharge Referrals: LALITHA LONGORIA NP [Primary Care Provider] - Follow up as needed
[2020-07-29 05:16] LABS: ABSOLUTE BASOPHILS # (AUTO) 0.1 10^3/uL (0.0-0.2); ABSOLUTE LYMPHOCYTES (AUTO) 1.6 10^3/uL (0.5-4.7); ABSOLUTE MONOCYTES (AUTO) 0.8 10^3/uL (0.1-1.4); ABSOLUTE NEUT (AUTO) 7.4 10^3/uL (1.7-8.2); BASOPHILS % (AUTO) 0.6 % (0-2); EOSINOPHILS % (AUTO) 0.4 % (0-6); HEMATOCRIT 42.7 % (37.9-51.0); HEMOGLOBIN 14.2 g/dL (13.5-17.0); LYMPHOCYTES % (AUTO) 16.3 % (13-45); MEAN CORPUSCULAR HEMOGLOBIN 31.8 pg (27.0-33.4); MEAN CORPUSCULAR HGB CONC 33.3 g/dL (32.0-36.0); MEAN CORPUSCULAR VOLUME 95 fl (80-97); MONOCYTES % (AUTO) 7.8 % (3-13); PLATELET COUNT 133 10^3/uL (150-450); RED BLOOD COUNT 4.47 10^6/uL (4.35-5.55); RED CELL DISTRIBUTION WIDTH 14.1 % (11.5-14.0); SEGMENTED NEUTROPHILS % (AUTO) 74.9 % (42-78); TOTAL CELLS COUNTED % (AUTO) 100 %; WHITE BLOOD COUNT 9.9 10^3/uL (4.0-10.5)
[2020-07-29 05:23] LABS: INTERNATIONAL RATION (INR) 1.11; PROTHROMBIN TIME 14.5 SEC (11.4-15.4)
--- NOTE | 2020-07-29 05:23 | RADIOLOGY REPORT (SQ) ---
CT of the head: 07/29/2020 4:21 AM BACKSIDE GRINDER HISTORY: 80-year-old patient with altered mental status. COMPARISON: CT the head from 01/13/2019 and 07/29/2020 TECHNIQUE: Multiple axial contiguous images were obtained through the head without intravenous contrast administered. This exam was performed according to our departmental dose-optimization program, which includes automated exposure control, adjustment of the mA and/or KV according to the patient's size and/or use of iterative reconstruction technique. FINDINGS: The ventricles and cerebral sulci demonstrate mild prominence, consistent with cerebral atrophy. There are mild periventricular hypodensities, suggestive of periventricular white matter changes. There is encephalomalacia again seen at the left frontal lobe. The desir-white matter differentiation is within normal limits. Both orbits appear unremarkable. The mastoid air cells appear clear. The visualized paranasal sinuses appear clear. The calvarium is intact. No extra-axial fluid collection is seen. No midline shift or mass effect is apparent. There are no findings to suggest acute intracranial hemorrhage. IMPRESSION: 1. No acute intracranial hemorrhage is seen. 2. Mild cerebral atrophy and periventricular white matter changes are seen.
[2020-07-29 05:50] LABS: VENOUS BLOOD BASE EXCESS -1.3 mmol/L; VENOUS BLOOD HCO3 23.7 mmol/L (20-32); VENOUS BLOOD PCO2 41.1 mmHg (35-63); VENOUS BLOOD PH 7.38 (7.30-7.42)
[2020-07-29 05:50] LABS: ALBUMIN 3.6 g/dL (3.5-5.0); ALKALINE PHOSPHATASE 66 U/L (38-126); ANION GAP 8 (5-19); ASPARTATE AMINO TRANSFERASE 31 U/L (17-59); BILIRUBIN,DIRECT 0.1 mg/dL (0.0-0.4); BILIRUBIN,TOTAL 1.4 mg/dL (0.2-1.3); BLOOD UREA NITROGEN 14 mg/dL (7-20); CALCIUM 8.8 mg/dL (8.4-10.2); CARBON DIOXIDE 25 mmol/L (22-30); CHLORIDE 106 mmol/L (98-107); GLUCOSE 137 mg/dL (75-110); POTASSIUM 4.4 mmol/L (3.6-5.0); TOTAL PROTEIN 6.5 g/dL (6.3-8.2)
--- NOTE | 2020-07-29 05:58 | RADIOLOGY REPORT (SQ) ---
AP Portable chest: 07/29/2020 4:56 AM INSIDE SALES ACCOUNT EXECUTIVE History: 80-year old patient with hypotension. Comparison: Chest radiograph from 05/02/2018 Findings: The cardiomediastinal silhouette is normal in size. No pneumothorax is seen. No acute airspace opacities are seen. No discrete pleural effusion is apparent. The lung volumes are low. There is suggestion of a few remote left-sided rib fractures present. This is similar to prior imaging. There is mild elevation of the right hemidiaphragm. Impression: No acute airspace opacities are seen.
[2020-07-29 06:12] LABS: NT PRO BNP 2170 pg/mL (<450)
[2020-07-29 06:14] LABS: TROPONIN I < 0.012 ng/mL
[2020-07-29] MEDS ORDERED: NORMAL SALINE 500 ML IV ONE (06:38)
--- NOTE | 2020-07-29 06:39 | EKG REPORT ---
SEVERITY:- ABNORMAL ECG - ATRIAL FIBRILLATION, V-RATE 77-135 ABNORMAL T, CONSIDER ISCHEMIA, DIFFUSE LEADS : Confirmed by: Roger Ricketts MD 29-Jul-2020 06:38:03
--- NOTE | 2020-07-29 06:46 | ER Document Report ---
ED General - General Chief Complaint: S/S of Possible Stroke Stated Complaint: SS OF STROKE Time Seen by Provider: 07/29/20 05:02 Primary Care Provider: LALITHA LONGORIA NP [Primary Care Provider] - Follow up as needed TRAVEL OUTSIDE OF THE [place] IN LAST 30 DAYS: No - HPI Notes: Patient is a 80-year-old male brought in the emergency department for evaluation via EMS for weakness. Evidently over the last several days he has not been really feeling well. He has had little in the way of appetite. He is just felt weak all over. Last night, he asked his to stay home as he was feeling even more weak. She tried to get him up to go to the bathroom at least 4 times. He was barely able to assist in any way. He denies any pain, with the exception of when he goes to urinate. No jaskaran hematuria to his knowledge. Denies any fevers or chills. No nausea or vomiting. Normal bowel movements. He has a chronic cough which she states is not worse than normal. He denies feeling short of breath, but his states that he has looked short of breath to her. Otherwise he said no changes in his medications. - Related Data Allergies/Adverse Reactions: No Known Allergies Allergy (Verified 05/09/19 15:38) Home Medications: Amlodipine. Elaquis. Metoprolol. Atrovastatin Past Medical History - General Information source: Patient, Relative, Emergency Med Personnel - Social History Smoking Status: Never Smoker Frequency of alcohol use: Social Family History: Reviewed & Not Pertinent - Past Medical History Cardiac Medical History: Reports: Hx Atrial Fibrillation, Hx Hypercholesterolemia, Hx Hypertension - MEDS Denies: Hx Heart Attack Pulmonary Medical History: Denies: Hx Asthma Neurological Medical History: Reports: Hx Cerebrovascular Accident - 04/2018- SPEECH,RT SIDE-CANE. Denies: Hx Seizures Renal/ Medical History: Denies: Hx Peritoneal Dialysis Malignancy Medical History: Reports Hx Prostate Cancer GI Medical History: Denies: Hx Hepatitis, Hx Hiatal Hernia, Hx Ulcer Infectious Medical History: Denies: Hx Hepatitis Past Surgical History: Denies: Hx Open Heart Surgery, Hx Pacemaker Review of Systems - Review of Systems Constitutional: See HPI EENT: No symptoms reported Cardiovascular: No symptoms reported Respiratory: No symptoms reported Gastrointestinal: No symptoms reported Genitourinary: See HPI Musculoskeletal: No symptoms reported Skin: No symptoms reported Neurological/Psychological: No symptoms reported Physical Exam - Vital signs Vitals: Resp Pulse Ox 23 H 93 07/29/20 04:59 07/29/20 04:59 - Notes Notes: This is a 80-year-old male appears stated age. He is mildly tachypneic and appears dyspneic. He is able to hold normal conversation. Vital signs reviewed, please refer to chart. Head is normocephalic, atraumatic. Pupils equal round, reactive to light. Neck is supple without meningismus. Heart is irregularly irregular. Lungs are clear to auscultation bilaterally. Abdomen is soft, nontender, normoactive bowel sounds throughout. Extremities without cyanosis, clubbing. Posterior calves are nontender. Peripheral pulses are equal. Skin is warm and dry. Patient is awake, alert, oriented x3. Cranial nerves II - XII are grossly intact without focal neurological deficits. Strength is plus 5 out of 5 bilateral upper and lower extremities. Sensation is intact. Reflexes symmetrical. Intact eguaob-bmex-jexpoj, rapid alternating movements, [id number]. Course - Re-evaluation Re-evalutation: 07/29/20 07:39 Patient presented to the emergency department for evaluation of increased weakness. He has some urinary symptoms. Initially he was hypotensive for EMS. He was given fluids and remained normotensive. He is mildly tachypneic. His laboratory investigations reveal large leukocyte esterase, blood and white blood cells in his urine. It was a traumatic catheterization bypassing the prostate. Given this and his symptoms, however, I do strongly suspect urinary tract infection. We will give a dose of IV Rocephin. Patient has had increasing weakness. We will have him ambulated in the department to evaluate for strength. He is currently stable, we will continue to monitor. 07/29/20 08:24 Patient was ambulated through the department with nursing. He states he feels a lot better. He was able to walk with a normal amount of assistance. He feels well enough to go home. He was given a dose of IV Rocephin. At this point he has no fever. He has no leukocytosis. His respiratory rate is not mildly, but he does not meet any septic criteria at this point. He is normotensive, normal lactic. I will send him home on Keflex with very close follow-up. He is told he will be contacted if his urine culture grows something that is not sensitive to the Keflex. He voiced understanding. Otherwise he is to follow-up with his primary care provider this week. He is to return to the ED with worsening or new concerning symptoms of any sort. - Vital Signs Vital signs: Temp Pulse Resp BP Pulse Ox 99.1 F 100 32 H 145/88 H 100 07/29/20 07:00 07/29/20 05:16 07/29/20 07:02 07/29/20 07:02 07/29/20 07:02 - Laboratory Result Diagrams: 07/29/20 05:04 07/29/20 05:04 Laboratory results interpreted by me: 07/29/20 07/29/20 07/29/20 05:04 05:04 05:04 RDW 14.1 H Plt Count 133 L Creatinine 1.29 H Est GFR (MDRD) Non-Af 54 L Glucose 137 H Total Bilirubin 1.4 H NT-Pro-B Natriuret Pep 2170 H Urine Protein Urine Blood Urine Urobilinogen Leukocyte Esterase Rfl 07/29/20 07:00 RDW Plt Count Creatinine Est GFR (MDRD) Non-Af Glucose Total Bilirubin NT-Pro-B Natriuret Pep Urine Protein 100 H Urine Blood LARGE H Urine Urobilinogen 4.0 H Leukocyte Esterase Rfl LARGE H Discharge - Discharge Clinical Impression: Generalized weakness Urinary tract infection Qualifiers: Urinary tract infection type: site unspecified Hematuria presence: with hematuria Qualified Code(s): N39.0 - Urinary tract infection, site not specified; R31.9 - Hematuria, unspecified Condition: Stable Disposition: HOME, SELF-CARE Instructions: Urinary Tract Infection ([facility]), Cephalexin ([facility]) Additional Instructions: Please take all the antibiotics as prescribed until they are gone. Rest. Stay well-hydrated. Follow-up with your primary care provider in 1 to 2 days. If you develop fevers, vomiting, or new or concerning symptoms of any sort, please return immediately to the emergency department for evaluation. Referrals: LALITHA LONGORIA ENVIRONMENTAL SERVICES ASSISTANT [Primary Care Provider] - Follow up as needed
[2020-07-29 07:22] VITALS: BP 145/88
[2020-07-29 07:32] LABS: APPEARANCE,URINE CLOUDY; BILIRUBIN,URINE NEGATIVE (NEGATIVE); COLOR,URINE YELLOW; GLUCOSE, URINE NEGATIVE (NEGATIVE); KETONES,URINE NEGATIVE (NEGATIVE); PROTEIN,URINE 100 mg/dL (NEGATIVE); URINE SPECIFIC GRAVITY 1.018
[2020-07-29] MEDS ORDERED: CEFTRIAXONE 1 GM/D5W RTU 1 GM/50 ML RTUPB IV ONE (07:45)
== END 2020-07-29 09:11 | disposition home or self-care (01) ==
LOC: ER 04:51
DX: N39.0 Urinary tract infection, site not specified (principal); R31.9 Hematuria, unspecified; R53.1 Weakness; R63.0 Anorexia; R05 Cough; R06.82 Tachypnea, not elsewhere classified; Z79.899 Other long term (current) drug therapy; Z79.01 Long term (current) use of anticoagulants; I48.91 Unspecified atrial fibrillation; I10 Essential (primary) hypertension
CPT/HCPCS: 93005; 99285; 96361; 96365; 36415; 87040; 87086; 83605; 85025; 85610; 87088; 80053; 81001; 84484; 82803; 83880; 71045; 70450; 93010; J7040; J0696; 87186

== ENCOUNTER 2020-07-29 17:11 | Inpatient (IN) | payer MEDICARE ==
[2020-07-29] MEDS ORDERED: CEFTRIAXONE 1 GM/D5W RTU 1 GM/50 ML RTUPB IV ONE (17:50)
--- NOTE | 2020-07-29 17:50 | ER Document Report ---
ED Medical Screen (RME) - General Chief Complaint: Penile Bleeding Stated Complaint: BLEEDING FROM PENIS Time Seen by Provider: 07/29/20 17:42 Primary Care Provider: LALITHA LONGORIA NP [Primary Care Provider] - Follow up as needed Mode of Arrival: Medic Information source: Patient, Relative Notes: 80-year-old male presents to ED for complaint of not being able to walk and blood from his penis. He states he was seen last night for severe weakness and diaphoresis. He states that he woke up in the night and walked from the bathroom to the bedroom and was profusely sweating and was very weak and able unable to get back up so he called 911 and came to the emergency room. He states while he was in the emergency room he had a Boyd catheter and he has been bleeding off and on since getting home. He does have minimal bleeding around the penis at this time. He states he cannot bear weight on either leg and cannot walk at all since early this morning. states that he cannot stay home when he cannot walk at all. I have greeted and performed a rapid initial assessment of this patient. A comprehensive ED assessment and evaluation of the patient, analysis of test results and completion of medical decision making process will be conducted by an additional ED providers. TRAVEL OUTSIDE OF THE [place] IN LAST 30 DAYS: No - Related Data Allergies/Adverse Reactions: No Known Allergies Allergy (Verified 05/09/19 15:38) Past Medical History - Past Medical History Cardiac Medical History: Reports: Hx Atrial Fibrillation, Hx Hypercholesterolemia, Hx Hypertension - MEDS Denies: Hx Heart Attack Pulmonary Medical History: Denies: Hx Asthma Neurological Medical History: Reports: Hx Cerebrovascular Accident - 04/2018- SPEECH,RT SIDE-CANE. Denies: Hx Seizures Renal/ Medical History: Denies: Hx Peritoneal Dialysis Malignancy Medical History: Reports Hx Prostate Cancer GI Medical History: Denies: Hx Hepatitis, Hx Hiatal Hernia, Hx Ulcer Infectious Medical History: Denies: Hx Hepatitis Past Surgical History: Denies: Hx Open Heart Surgery, Hx Pacemaker Course - Laboratory Result Diagrams: 07/29/20 17:29 07/29/20 17:29 Doctor's Discharge - Discharge Referrals: LALITHA LONGORIA NP [Primary Care Provider] - Follow up as needed
[2020-07-29 17:53] LABS: VENOUS BLOOD BASE EXCESS -0.8 mmol/L; VENOUS BLOOD HCO3 23.7 mmol/L (20-32); VENOUS BLOOD PCO2 38.9 mmHg (35-63); VENOUS BLOOD PH 7.4 (7.30-7.42)
[2020-07-29 18:01] LABS: INTERNATIONAL RATION (INR) 1.29; PROTHROMBIN TIME 16.3 SEC (11.4-15.4)
[2020-07-29 18:06] LABS: ABSOLUTE LYMPHOCYTES (AUTO) 1.5 10^3/uL (0.5-4.7); ABSOLUTE MONOCYTES (AUTO) 0.8 10^3/uL (0.1-1.4); ABSOLUTE NEUT (AUTO) 9.9 10^3/uL (1.7-8.2); BASOPHILS % (AUTO) 0.3 % (0-2); EOSINOPHILS % (AUTO) 0.1 % (0-6); HEMATOCRIT 45.3 % (37.9-51.0); HEMOGLOBIN 15.2 g/dL (13.5-17.0); LYMPHOCYTES % (AUTO) 12.1 % (13-45); MEAN CORPUSCULAR HGB CONC 33.6 g/dL (32.0-36.0); MEAN CORPUSCULAR VOLUME 95 fl (80-97); MONOCYTES % (AUTO) 6.9 % (3-13); PLATELET COUNT 147 10^3/uL (150-450); RED BLOOD COUNT 4.75 10^6/uL (4.35-5.55); RED CELL DISTRIBUTION WIDTH 14.3 % (11.5-14.0); SEGMENTED NEUTROPHILS % (AUTO) 80.6 % (42-78); TOTAL CELLS COUNTED % (AUTO) 100 %; WHITE BLOOD COUNT 12.3 10^3/uL (4.0-10.5)
[2020-07-29 18:07] LABS: ALBUMIN 3.9 g/dL (3.5-5.0); ALKALINE PHOSPHATASE 82 U/L (38-126); ANION GAP 9 (5-19); ASPARTATE AMINO TRANSFERASE 52 U/L (17-59); BILIRUBIN,DIRECT 0.2 mg/dL (0.0-0.4); BILIRUBIN,TOTAL 1.7 mg/dL (0.2-1.3); BLOOD UREA NITROGEN 14 mg/dL (7-20); CALCIUM 8.9 mg/dL (8.4-10.2); CARBON DIOXIDE 22 mmol/L (22-30); CHLORIDE 104 mmol/L (98-107); GLUCOSE 128 mg/dL (75-110); POTASSIUM 4.1 mmol/L (3.6-5.0); TOTAL PROTEIN 7.1 g/dL (6.3-8.2)
[2020-07-29] MEDS: NORMAL SALINE 1000 ML 1,000 ML IV PRN ×2 (18:14→19:02)
[2020-07-29 19:01] LABS: C-REACTIVE PROTEIN 154.9 mg/L (<10.0)
--- NOTE | 2020-07-29 19:49 | EKG REPORT ---
SEVERITY:- ABNORMAL ECG - ATRIAL FIBRILLATION, V-RATE 71-124 NONSPECIFIC T ABNORMALITIES, DIFFUSE LEADS : Confirmed by: Isaías Foy MD 29-Jul-2020 19:48:54
--- NOTE | 2020-07-29 19:52 | ER Document Report ---
Entered by TYRELL LARSON SCRIBE 07/29/20 1834 Acting as scribe for:RUMA DALY DO ED General - General Chief Complaint: Penile Bleeding Stated Complaint: BLEEDING FROM PENIS Time Seen by Provider: 07/29/20 17:42 Primary Care Provider: LALITHA LONGORIA NP [Primary Care Provider] - Follow up as needed Mode of Arrival: Medic Information source: Patient, [facility] Records Notes: This 80 year old male patient presents to the emergency department today with complaints of weakness and penile bleeding. Patient was seen in the ED earlier this morning for weakness and was discharged home. Patient was straight cathed while in the ED and diagnosed with a UTI. Denies nausea or covid exposure. Patient reports history of Afib and is on eliquis. TRAVEL OUTSIDE OF THE [place] IN LAST 30 DAYS: No - Related Data Allergies/Adverse Reactions: No Known Allergies Allergy (Verified 07/29/20 19:04) Past Medical History - General Information source: Patient, Relative, [facility] Records - Social History Smoking Status: Never Smoker Cigarette use (# per day): No Family History: Reviewed & Not Pertinent - Past Medical History Cardiac Medical History: Reports: Hx Atrial Fibrillation, Hx Heart Attack, Hx Hypercholesterolemia, Hx Hypertension - MEDS Neurological Medical History: Reports: Hx Cerebrovascular Accident - 04/2018- SPEECH,RT SIDE-CANE. Denies: Hx Seizures Renal/ Medical History: Denies: Hx Peritoneal Dialysis Malignancy Medical History: Reports Hx Prostate Cancer GI Medical History: Denies: Hx Hepatitis, Hx Hiatal Hernia, Hx Ulcer Infectious Medical History: Denies: Hx Hepatitis Past Surgical History: Reports: Hx Orthopedic Surgery - hip. Denies: Hx Open Heart Surgery, Hx Pacemaker Review of Systems - Review of Systems Constitutional: See HPI, Weakness EENT: No symptoms reported Cardiovascular: No symptoms reported Respiratory: No symptoms reported Gastrointestinal: See HPI. denies: Nausea Genitourinary: See HPI Male Genitourinary: See HPI, Other - penile bleeding Musculoskeletal: No symptoms reported Skin: No symptoms reported Hematologic/Lymphatic: No symptoms reported Neurological/Psychological: See HPI, Weakness -: Yes All other systems reviewed and negative Physical Exam - Vital signs Vitals: Pulse Ox 95 07/29/20 17:13 - General Notes: Alert. Elderly and frail appearance. - HEENT Head: Normocephalic, Atraumatic Eyes: Normal Pupils: PERRL - Respiratory Respiratory status: No respiratory distress Chest status: Nontender Breath sounds: Normal Chest palpation: Normal - Cardiovascular Rhythm: Irregularly irregular, Tachycardia - mild Heart sounds: Normal auscultation Murmur: No - Abdominal Inspection: Obese Distension: No distension Bowel sounds: Normal Tenderness: Nontender - Extremities General upper extremity: Normal inspection. No: Edema General lower extremity: Normal inspection. No: Edema - Neurological Neuro grossly intact: Yes Cognition: Normal Orientation: AAOx4 Douglass Coma Scale Eye Opening: Spontaneous Zoie Coma Scale Verbal: Oriented Zoie Coma Scale Motor: Obeys Commands Douglass Coma Scale Total: 15 Speech: Normal Sensory: Normal - Psychological Associated symptoms: Normal affect, Normal mood - Skin Skin Temperature: Warm Skin Moisture: Dry Skin Color: Normal Course - Re-evaluation Re-evalutation: 07/29/20 21:32 MDM Frail elderly gentleman returns after visit here earlier today with UTI and profound generalized weakness. Too weak to stand a walk. He is an eloquis taker due to a fib and disabled from previous cva. Has BPH is sounds like too. can not care for at home in his present state. I have discussed the pt with the hospitalist team - Dr. Robertson - and he has graciously agreed to see and evaluate for admission. - Vital Signs Vital signs: Temp Pulse Resp BP Pulse Ox 99.2 F 25 H 124/84 95 07/29/20 19:04 07/29/20 21:01 07/29/20 21:01 07/29/20 21:01 - Laboratory Result Diagrams: 07/29/20 17:29 07/29/20 17:29 Laboratory results interpreted by me: 07/29/20 07/29/20 07/29/20 17:29 17:29 17:29 WBC 12.3 H RDW 14.3 H Plt Count 147 L Lymph % (Auto) 12.1 L Absolute Neuts (auto) 9.9 H Seg Neutrophils % 80.6 H PT 16.3 H Sodium 135.1 L Est GFR (MDRD) Non-Af 59 L Glucose 128 H Total Bilirubin 1.7 H C-Reactive Protein 07/29/20 17:29 WBC RDW Plt Count Lymph % (Auto) Absolute Neuts (auto) Seg Neutrophils % PT Sodium Est GFR (MDRD) Non-Af Glucose Total Bilirubin C-Reactive Protein 154.9 H - Diagnostic Test Radiology reviewed: Image reviewed, Reports reviewed - EKG Interpretation by Me Rate: Normal Rhythm: A.Fib - Atrial Fibrillation nl axis repolarization abnormality no st elevation or depression my interpretation. When compared to previous EKG there are: No significant change Discharge - Discharge Clinical Impression: Generalized weakness Urinary tract infection Qualifiers: Urinary tract infection type: acute pyelonephritis Qualified Code(s): N10 - Acute pyelonephritis Condition: Stable Disposition: ADMITTED INPATIENT Admitting Provider: Ailyn (Hospitalist) Unit Admitted: Telemetry Referrals: LALITHA LONGORIA NP [Primary Care Provider] - Follow up as needed I personally performed the services described in the documentation, reviewed and edited the documentation which was dictated to the scribe in my presence, and it accurately records my words and actions.
[2020-07-29] MEDS ORDERED: ACETAMINOPHEN 325 MG TABLET PO PRN (21:26)
[2020-07-29] MEDS ORDERED: ONDANSETRON HCL INJ/PF 4 MG/2 ML SDV IV PRN (21:26)
--- NOTE | 2020-07-29 21:44 | PDOC H&P ---
History of Present Illness Admission Date/PCP: LALITHA LONGORIA NP History of Present Illness: CHELSEA TONY is a 80 year old male with a history of atrial fibrillation, ischemic stroke, and hypertension, as well as possible BPH, who presents with weakness and hematuria. He initially presented to the ER first thing this morning with some generalized weakness and lower blood pressures, was diagnosed with urinary tract infection. They had to straight cath him in the ER, and had a hard time getting the Boyd catheter past the prostate, which was a traumatic process for this patient who is on an anticoagulant. His blood pressures improved after little bit of fluids, he was afebrile and had no leukocytosis, so he was sent home on some Keflex. His brought him back basically because she could not take care of him at home because he was too weak. He has some chronic right-sided weakness as a result of his stroke. In the ER he had a temperature of 102.2 Fahrenheit and a leukocytosis, with a CRP that was almost 150. Fortunately his vital signs were otherwise stable. He is being admitted for sepsis due to UTI. Past Medical History Cardiac Medical History: Reports: Atrial Fibrillation, Myocardial Infarction, Hyperlipidema, Hypertension - MEDS Pulmonary Medical History: Denies: Asthma Neurological Medical History: Denies: Seizures GI Medical History: Denies: Hepatitis, Hiatal Hernia Hematology: Denies: Anemia, Sickle Cell Disease Past Surgical History Past Surgical History: Reports: Orthopedic Surgery - hip Denies: Pacemaker Social History Smoking Status: Never Smoker Family History Family History: Reviewed & Not Pertinent Parental Family History Reviewed: No - Patient does not know Children Family History Reviewed: Unknown Sibling(s) Family History Reviewed.: Unknown Medication/Allergy Home Medications: Amlodipine Besylate [Norvasc 2.5 mg Tablet] 2.5 mg PO DAILY #15 tablet 08/14/18 Apixaban [Eliquis 5 mg Tablet] 5 mg PO DAILY 04/05/19 Besifloxacin HCl [Besivance 0.6% Oph Susp 5 ml] 1 drop OP ASDIR 04/05/19 Difluprednate [Durezol] 1 drop OP ASDIR 04/05/19 Dronedarone Hydrochloride [Multaq 400 Mg Tablet] 400 mg PO BID 04/05/19 Metoprolol Succinate [Toprol Xl] 100 mg PO BID 04/05/19 Nepafenac [Ilevro] 1 drop OP ASDIR 04/05/19 Cephalexin Monohydrate [Keflex 500 mg Capsule] 500 mg PO TID #30 capsule 07/29/20 Allergies/Adverse Reactions: No Known Allergies Allergy (Verified 07/29/20 19:04) Review of Systems All systems: reviewed and no additional remarkable complaints except as stated - All systems were reviewed and were negative except as noted in the HPI Physical Exam Vital Signs: Temp Pulse Resp BP Pulse Ox 99.2 F 25 H 124/84 95 07/29/20 19:04 07/29/20 21:01 07/29/20 21:01 07/29/20 21:01 Intake & Output 07/28/20 07/29/20 07/30/20 06:59 06:59 06:59 Intake Total 2049 Balance 2049 Weight 95 kg General appearance: PRESENT: no acute distress, cooperative, disheveled, obese Head exam: PRESENT: atraumatic, normocephalic Eye exam: PRESENT: EOMI, PERRLA. ABSENT: conjunctival injection, nystagmus, scleral icterus Neck exam: PRESENT: full ROM. ABSENT: carotid bruit, JVD, lymphadenopathy, meningismus, tenderness, thyromegaly Respiratory exam: PRESENT: clear to auscultation uvaldo, symmetrical, unlabored. ABSENT: accessory muscle use, chest wall tenderness, crackles, prolonged expiratory phas, rhonchi, tachypnea, wheezes Cardiovascular exam: PRESENT: irregular rhythm, +S1, +S2 Pulses: PRESENT: normal carotid pulses Vascular exam: PRESENT: normal capillary refill GI/Abdominal exam: PRESENT: normal bowel sounds, soft. ABSENT: distended, guarding, rebound, tenderness Extremities exam: ABSENT: clubbing, pedal edema Musculoskeletal exam: PRESENT: normal inspection. ABSENT: deformity Neurological exam: PRESENT: awake, oriented to person, oriented to place, oriented to situation, CN II-XII grossly intact, motor sensory deficit - He has some chronic mild slurring of his speech and some chronic right sided muscle weakness Psychiatric exam: PRESENT: flat affect Skin exam: PRESENT: dry, warm Results Laboratory Results: 07/29/20 17:29 07/29/20 17:29 07/29/20 07/29/20 07/29/20 17:29 17:29 17:29 WBC 12.3 H RBC 4.75 Hgb 15.2 Hct 45.3 MCV 95 MCH 32.0 MCHC 33.6 RDW 14.3 H Plt Count 147 L Seg Neutrophils % 80.6 H VBG pH 7.40 VBG pCO2 38.9 VBG HCO3 23.7 VBG Base Excess -0.8 Sodium 135.1 L Potassium 4.1 Chloride 104 Carbon Dioxide 22 Anion Gap 9 BUN 14 Creatinine 1.20 Est GFR ( Amer) > 60 Glucose 128 H Lactic Acid Calcium 8.9 Total Bilirubin 1.7 H AST 52 Alkaline Phosphatase 82 C-Reactive Protein Total Protein 7.1 Albumin 3.9 Blood Type Antibody Screen 07/29/20 07/29/20 07/29/20 17:29 17:29 18:18 WBC RBC Hgb Hct MCV MCH MCHC RDW Plt Count Seg Neutrophils % VBG pH VBG pCO2 VBG HCO3 VBG Base Excess Sodium Potassium Chloride Carbon Dioxide Anion Gap BUN Creatinine Est GFR ( Amer) Glucose Lactic Acid 1.4 Calcium Total Bilirubin AST Alkaline Phosphatase C-Reactive Protein 154.9 H Total Protein Albumin Blood Type A POSITIVE Antibody Screen NEGATIVE 07/29/20 20:22 WBC RBC Hgb Hct MCV MCH MCHC RDW Plt Count Seg Neutrophils % VBG pH VBG pCO2 VBG HCO3 VBG Base Excess Sodium Potassium Chloride Carbon Dioxide Anion Gap BUN Creatinine Est GFR ( Amer) Glucose Lactic Acid 0.9 Calcium Total Bilirubin AST Alkaline Phosphatase C-Reactive Protein Total Protein Albumin Blood Type Antibody Screen 07/29/20 17:29 Creatine Kinase 144 Assessment and Plan - Diagnosis (1) Sepsis Qualifiers: Sepsis type: sepsis due to unspecified organism Sepsis acute organ dysfunction status: without acute organ dysfunction Qualified Code(s): A41.9 - Sepsis, unspecified organism Is this a current diagnosis for this admission?: Yes (2) Atrial fibrillation Qualifiers: Atrial fibrillation type: permanent Qualified Code(s): I48.21 - Permanent atrial fibrillation Is this a current diagnosis for this admission?: Yes (3) Chronic anticoagulation Is this a current diagnosis for this admission?: Yes (4) Hypertension Qualifiers: Hypertension type: essential hypertension Qualified Code(s): I10 - Essential (primary) hypertension Is this a current diagnosis for this admission?: Yes (5) Elevated random blood glucose level Is this a current diagnosis for this admission?: Yes (6) Generalized weakness Is this a current diagnosis for this admission?: Yes (7) Urinary tract infection Qualifiers: Hematuria presence: with hematuria Qualified Code(s): N10 - Acute pyelonephritis Is this a current diagnosis for this admission?: Yes - Plan Summary Summary: We will put him on IV Rocephin and will follow up the urine culture that was done earlier today but is listed in the EMR under a previous visit, it can be found easily with a search of prior test results. We will put him on some IV fluids and will let him eat, he says that even though his speech is a little slurred at baseline he does not have any trouble chewing or swallowing. Once he is feeling a little bit better we can have him evaluated by physical therapy to see just how weak he actually is. He said he normally walks with a little bit of a limp on his right side and has some trouble using his right arm and right hand. We will resume his home medications for his atrial fibrillation. We will monitor him closely for signs of urinary retention given his history of probable BPH and his traumatic catheterization earlier. His blood glucose was little bit elevated so I included a diabetic diet as part of his dietary restrictions but have not started any sliding scale until we can see what his blood sugars actually doing. - Time Time Spent with patient: 35 or more minutes Anticipated Discharge Disposition: Home with Home Health Anticipated Discharge Timeframe: Unknown - Inpatient Certification Based on my medical assessment, after consideration of the patient's comorbid ities, presenting symptoms, or acuity I expect that the services needed warrant INPATIENT care.: Yes I certify that my determination is in accordance with my understanding of Medicare's requirements for reasonable and necessary INPATIENT services [42 CFR 412.3e].: Yes Medical Necessity: Failure to Improve With Outpatient Therapy, Significant Comorbidiites Make Outpatient Treatment Too Risky, Need Close Monitoring Due to Risk of Patient Decompensation, Need For IV Fluids, Need For Continuous Telemetry Monitoring, Need for IV Antibiotics, Risk of Complication if Not Cared For in Hospital
[2020-07-29 21:45] LABS: APPEARANCE,URINE SLIGHTLY-CLOUDY; BILIRUBIN,URINE NEGATIVE (NEGATIVE); GLUCOSE, URINE NEGATIVE (NEGATIVE); KETONES,URINE NEGATIVE (NEGATIVE); PROTEIN,URINE 100 mg/dL (NEGATIVE); URINE SPECIFIC GRAVITY 1.014
[2020-07-29 21:49] LABS: COLOR,URINE YELLOW
[2020-07-30 07:02] LABS: HEMATOCRIT 40.3 % (37.9-51.0); HEMOGLOBIN 13.4 g/dL (13.5-17.0); MEAN CORPUSCULAR HEMOGLOBIN 31.7 pg (27.0-33.4); MEAN CORPUSCULAR HGB CONC 33.3 g/dL (32.0-36.0); MEAN CORPUSCULAR VOLUME 95 fl (80-97); PLATELET COUNT 125 10^3/uL (150-450); RED BLOOD COUNT 4.22 10^6/uL (4.35-5.55); RED CELL DISTRIBUTION WIDTH 14.6 % (11.5-14.0); WHITE BLOOD COUNT 11.7 10^3/uL (4.0-10.5)
[2020-07-30 07:21] LABS: ANION GAP 9 (5-19); BLOOD UREA NITROGEN 14 mg/dL (7-20); CALCIUM 8.2 mg/dL (8.4-10.2); CARBON DIOXIDE 21 mmol/L (22-30); CHLORIDE 108 mmol/L (98-107); GLUCOSE 103 mg/dL (75-110)
[2020-07-30] MEDS: CEFTRIAXONE 1 GM/D5W RTU 1 GM/50 ML RTUPB IV SCH (12:09)
--- NOTE | 2020-07-30 15:57 | PDOC PROGRESS REPORT ---
Subjective Date:: 07/30/20 Subjective:: Patient seen on morning rounds. He is resting in bed comfortably. Reports dysruia prior to admission, which has since resolved. Further notes generalized weakness stating that prior to admission he was unable to lift his legs off the bed, tells me this has significantly improved and demonstrates full range of motion of bilateral lower extremities lifting ultralights 1 foot up with bed well-leg supine. He is producing urine without pain/difficulty at this time. Provides me with no further complaints or concerns today. Discussed with nursing. Per nursing pt with hx heavy alcohol use, consuming 1 pint weekly with last drink x1 week ago. Pt decided to quit by his own choice b ecause he knows alcohol is bad for him. Denies history of EtOH withdrawal previously. Denies tremor, anxiety or hallucinations. No further concerns per nursing. Reason For Visit: GENERALIZED WEAKNESS,UTI Physical Exam Vital Signs: Temp Pulse Resp BP Pulse Ox 98.5 F 110 H 20 146/94 H 100 07/30/20 12:49 07/30/20 12:49 07/30/20 12:49 07/30/20 12:49 07/30/20 12:49 Intake & Output 07/29/20 07/30/20 07/31/20 06:59 06:59 06:59 Intake Total 2049 Balance 2049 Weight 95 kg 95 kg General appearance: PRESENT: no acute distress, cooperative, obese Head exam: PRESENT: atraumatic, normocephalic Eye exam: PRESENT: EOMI. ABSENT: scleral icterus Mouth exam: PRESENT: moist, tongue midline Teeth exam: PRESENT: poor dentation Neck exam: PRESENT: full ROM. ABSENT: JVD, tenderness Respiratory exam: PRESENT: clear to auscultation uvaldo, symmetrical, unlabored. ABSENT: crackles, rales, retraction, rhonchi, tachypnea, wheezes Cardiovascular exam: PRESENT: irregular rhythm, +S1, +S2 GI/Abdominal exam: PRESENT: normal bowel sounds, soft. ABSENT: firm, guarding, rebound, rigid, tenderness Gentrourinary exam: ABSENT: indwelling catheter Extremities exam: PRESENT: full ROM. ABSENT: pedal edema, tenderness Neurological exam: PRESENT: alert, awake, oriented to person, oriented to place, oriented to time, other - Chronic, mild slurring of speech from previous stroke (x3 years ago), some chronic right sided weakness noted Psychiatric exam: PRESENT: appropriate affect, normal mood. ABSENT: anxious Skin exam: PRESENT: dry, intact, warm Results Laboratory Results: 07/30/20 06:35 07/30/20 06:35 07/29/20 07/29/20 07/29/20 17:29 17:29 17:29 WBC 12.3 H RBC 4.75 Hgb 15.2 Hct 45.3 MCV 95 MCH 32.0 MCHC 33.6 RDW 14.3 H Plt Count 147 L Seg Neutrophils % 80.6 H VBG pH 7.40 VBG pCO2 38.9 VBG HCO3 23.7 VBG Base Excess -0.8 Sodium 135.1 L Potassium 4.1 Chloride 104 Carbon Dioxide 22 Anion Gap 9 BUN 14 Creatinine 1.20 Est GFR ( Amer) > 60 Glucose 128 H Lactic Acid Calcium 8.9 Total Bilirubin 1.7 H AST 52 Alkaline Phosphatase 82 C-Reactive Protein Total Protein 7.1 Albumin 3.9 Urine Color Urine Appearance Urine pH Ur Specific Cochran Urine Protein Urine Glucose (UA) Urine Ketones Urine Blood Urine RBC (Auto) Blood Type Antibody Screen 07/29/20 07/29/20 07/29/20 17:29 17:29 18:18 WBC RBC Hgb Hct MCV MCH MCHC RDW Plt Count Seg Neutrophils % VBG pH VBG pCO2 VBG HCO3 VBG Base Excess Sodium Potassium Chloride Carbon Dioxide Anion Gap BUN Creatinine Est GFR ( Amer) Glucose Lactic Acid 1.4 Calcium Total Bilirubin AST Alkaline Phosphatase C-Reactive Protein 154.9 H Total Protein Albumin Urine Color Urine Appearance Urine pH Ur Specific Cochran Urine Protein Urine Glucose (UA) Urine Ketones Urine Blood Urine RBC (Auto) Blood Type A POSITIVE Antibody Screen NEGATIVE 07/29/20 07/29/20 07/29/20 20:22 20:54 23:38 WBC RBC Hgb Hct MCV MCH MCHC RDW Plt Count Seg Neutrophils % VBG pH VBG pCO2 VBG HCO3 VBG Base Excess Sodium Potassium Chloride Carbon Dioxide Anion Gap BUN Creatinine Est GFR ( Amer) Glucose Lactic Acid 0.9 1.0 Calcium Total Bilirubin AST Alkaline Phosphatase C-Reactive Protein Total Protein Albumin Urine Color YELLOW Urine Appearance SLIGHTLY-CLOUDY Urine pH 5.0 Ur Specific Cochran 1.014 Urine Protein 100 H Urine Glucose (UA) NEGATIVE Urine Ketones NEGATIVE Urine Blood LARGE H Urine RBC (Auto) >182 Blood Type Antibody Screen 07/30/20 07/30/20 06:35 06:35 WBC 11.7 H RBC 4.22 L Hgb 13.4 L Hct 40.3 MCV 95 MCH 31.7 MCHC 33.3 RDW 14.6 H Plt Count 125 L Seg Neutrophils % VBG pH VBG pCO2 VBG HCO3 VBG Base Excess Sodium 137.7 Potassium 4.0 Chloride 108 H Carbon Dioxide 21 L Anion Gap 9 BUN 14 Creatinine 1.19 Est GFR ( Amer) > 60 Glucose 103 Lactic Acid Calcium 8.2 L Total Bilirubin AST Alkaline Phosphatase C-Reactive Protein Total Protein Albumin Urine Color Urine Appearance Urine pH Ur Specific Cochran Urine Protein Urine Glucose (UA) Urine Ketones Urine Blood Urine RBC (Auto) Blood Type Antibody Screen 07/29/20 17:29 Creatine Kinase 144 Assessment and Plan - Diagnosis (1) Urinary tract infection Qualifiers: Hematuria presence: with hematuria Qualified Code(s): N10 - Acute pyelonephritis Is this a current diagnosis for this admission?: Yes Plan: Presenting symptoms dysuria, decreased urinary frequency; have since resolved. - Decreased urine frequency likely secondary to BPH, with traumatic cath in ED. - Since producing adequate urine without symptoms/retention - UC 07/29 + gram positive rods - Tx: IV Rocephin (first dose 07/30) - Repeat UC without growth - If continue to improve plan to transition to PO therapy with dc. (2) Sepsis Qualifiers: Sepsis type: sepsis due to unspecified organism Sepsis acute organ dysfunction status: without acute organ dysfunction Qualified Code(s): A41.9 - Sepsis, unspecified organism Is this a current diagnosis for this admission?: Yes Plan: On admission pt febrile (102) and tachycardic with WBC 12.3. - Since afebrile - Remains tachycardic, likely secondary to Afib. - WBC 12.4 -> 11.7 - BC pending - Abx as above (3) Atrial fibrillation Qualifiers: Atrial fibrillation type: permanent Qualified Code(s): I48.21 - Permanent atrial fibrillation Is this a current diagnosis for this admission?: Yes Plan: Hx Afib on chronic anticoagulation and metoprolol. - HR consistently elevated > 100s. - Restart home medications. - Continue to monitor. (4) Chronic anticoagulation Is this a current diagnosis for this admission?: Yes Plan: On Eliquis 5mg po daily for chronic Afib. Continue home dose. (5) Hypertension Qualifiers: Hypertension type: essential hypertension Qualified Code(s): I10 - Essential (primary) hypertension Is this a current diagnosis for this admission?: Yes Plan: Bp 140/90s, this is without home BP medications. Resume home bp medications today. Monitor (6) Elevated random blood glucose level Is this a current diagnosis for this admission?: Yes Plan: Blood glucose 128 on admission, 103 on repeat. - No known hx DM. - Heme A1c pending. - Continue to monitor (7) Generalized weakness Is this a current diagnosis for this admission?: Yes Plan: Likely secondary to UTI, with noted improvement since admission. - With hx CVA x3 years ago, with residual right sided weakness. - Physical therapy evaluation pending - Plan Summary Summary: - Time Time Spent with patient: 25-34 minutes Medications reviewed and adjusted accordingly: Yes Anticipated Discharge Disposition: Home, Self Care Anticipated Discharge Timeframe: within 24 hours
[2020-07-30] MEDS: RINGERS SOLUTION,LACTATED 1,000 ML IV PRN (17:12)
[2020-07-30] MEDS: AMLODIPINE BESYLATE 2.5 MG TABLET PO SCH (17:28)
[2020-07-30] MEDS ORDERED: (PENDING PHARMACY ID) (Metoprolol Succinate [Toprol Xl] 100 MG Tab.Er.24h) PO SCH (18:00)
[2020-07-30] MEDS ORDERED: ATORVASTATIN CALCIUM 10 MG TABLET PO SCH (22:00)
[2020-07-31] MEDS: METOPROLOL SUCCINATE 50 MG TAB.SR.24H PO SCH ×2 (00:16→10:12)
[2020-07-31 05:50] LABS: HEMATOCRIT 39.8 % (37.9-51.0); HEMOGLOBIN 13.2 g/dL (13.5-17.0); MEAN CORPUSCULAR HEMOGLOBIN 31.7 pg (27.0-33.4); MEAN CORPUSCULAR HGB CONC 33.2 g/dL (32.0-36.0); MEAN CORPUSCULAR VOLUME 95 fl (80-97); PLATELET COUNT 117 10^3/uL (150-450); RED BLOOD COUNT 4.17 10^6/uL (4.35-5.55); RED CELL DISTRIBUTION WIDTH 14.2 % (11.5-14.0); WHITE BLOOD COUNT 5.5 10^3/uL (4.0-10.5)
[2020-07-31 06:06] LABS: ANION GAP 8 (5-19); BLOOD UREA NITROGEN 14 mg/dL (7-20); CALCIUM 8.5 mg/dL (8.4-10.2); CARBON DIOXIDE 24 mmol/L (22-30); CHLORIDE 105 mmol/L (98-107); GLUCOSE 95 mg/dL (75-110); POTASSIUM 3.6 mmol/L (3.6-5.0)
[2020-07-31] MEDS ORDERED: INFLUENZA QUAD (6MOS+) 2020-21 VAC 0.5 ML SYR IM ONE (08:00)
[2020-07-31] MEDS ORDERED: APIXABAN 5 MG TABLET PO SCH (10:00)
[2020-07-31] MEDS: CEFTRIAXONE 1 GM/D5W RTU 1 GM/50 ML RTUPB IV SCH (10:11)
[2020-07-31] MEDS: AMLODIPINE BESYLATE 2.5 MG TABLET PO SCH (10:12)
[2020-07-31] MEDS: RINGERS SOLUTION,LACTATED 1,000 ML IV PRN (10:20)
[2020-07-31 14:56] VITALS: BP 114/72
--- NOTE | 2020-07-31 19:19 | PDOC DISCHARGE SUMMARY ---
Impression - Admit/DC Date/PCP Admission Date/Primary Care Provider: 07/29/20 22:01 LALITHA LONGORIA NP Discharge Date: 07/31/20 - Discharge Diagnosis (1) Urinary tract infection Is this a current diagnosis for this admission?: Yes (2) Sepsis Is this a current diagnosis for this admission?: Yes (3) Atrial fibrillation Is this a current diagnosis for this admission?: Yes (4) Chronic anticoagulation Is this a current diagnosis for this admission?: Yes (5) Hypertension Is this a current diagnosis for this admission?: Yes (6) Elevated random blood glucose level Is this a current diagnosis for this admission?: Yes (7) Generalized weakness Is this a current diagnosis for this admission?: Yes - Assessment Summary: - Additional Information Discharge Diet: As Tolerated, Cardiac Discharge Activity: Activity As Tolerated Referrals: LALITHA LONGORIA, [employer] [Primary Care Provider] - Follow up as needed (07/31/20 1020 called and left a voicemail. They will contact pt with follow up ) Prescriptions: Cefuroxime Axetil [Ceftin 250 mg Tablet] 1 tab PO BID 5 Days #10 tablet Tamsulosin HCl [Flomax 0.4 mg Cap.sr] 0.4 mg PO DAILY #30 cap.sr.24h Finasteride [Proscar 5 mg Tablet] 5 mg PO DAILY #30 tablet Home Medications: Amlodipine Besylate [Norvasc 2.5 mg Tablet] 2.5 mg PO DAILY #15 tablet 08/14/18 Apixaban [Eliquis 5 mg Tablet] 5 mg PO DAILY 04/05/19 Metoprolol Succinate [Toprol Xl] 100 mg PO BID 04/05/19 Atorvastatin Calcium [Lipitor 10 mg Tablet] 10 mg PO QHS 07/30/20 Cefuroxime Axetil [Ceftin 250 mg Tablet] 1 tab PO BID 5 Days #10 tablet 07/31/20 Finasteride [Proscar 5 mg Tablet] 5 mg PO DAILY #30 tablet 07/31/20 Tamsulosin HCl [Flomax 0.4 mg Cap.sr] 0.4 mg PO DAILY #30 cap.sr.24h 07/31/20 History of Present Illiness History of Present Illness: CHELSEA TONY is a 80 year old male Hospital Course Hospital Course: Urinary tract infection Presenting symptoms dysuria, decreased urinary frequency; have since resolved. - Decreased urine frequency likely secondary to BPH, with traumatic cath in ED. - Since producing adequate urine without symptoms/retention - UC 07/29 + Proteus Mirabilis - Tx: IV Rocephin (first dose 07/30) transitioned to 250mg Ceftin BID x5 days - Repeat UC without growth Sepsis Resolved On admission pt febrile (102) and tachycardic with WBC 12.3. - Since afebrile - Remains tachycardic, likely secondary to Afib. - WBC 12.4 -> 11.7 -> 5.5 prior to discharge - BC without growth Atrial fibrillation Hx Afib on chronic anticoagulation and metoprolol. - Continue home medications. Hypertension Bp 140/90s, this is without home BP medications. Continue home medications. Elevated random blood glucose level Blood glucose 128 on admission, 103 on repeat. - No known hx DM. - Heme A1c 4.8 - No further treatment indicated at this time Generalized weakness Likely secondary to acute illness with noted improvement since admission. - With hx CVA x3 years ago, with residual right sided weakness. - Physical therapy to f/u with home health. Physical Exam Vital Signs: Temp Pulse Resp BP Pulse Ox 98.3 F 98 18 114/72 100 07/31/20 14:54 07/31/20 14:54 07/31/20 14:54 07/31/20 14:54 07/31/20 14:54 Intake & Output 07/30/20 07/31/20 08/01/20 06:59 06:59 06:59 Intake Total 2049 1150 310 Balance 2049 1150 310 Weight 95 kg 95.6 kg Additional comments: General appearance: PRESENT: no acute distress, cooperative, obese Head exam: PRESENT: atraumatic, normocephalic Eye exam: PRESENT: EOMI. ABSENT: scleral icterus Mouth exam: PRESENT: moist, tongue midline Teeth exam: PRESENT: poor dentation Neck exam: PRESENT: full ROM. ABSENT: JVD, tenderness Respiratory exam: PRESENT: clear to auscultation uvaldo, symmetrical, unlabored. ABSENT: crackles, rales, retraction, rhonchi, tachypnea, wheezes Cardiovascular exam: PRESENT: irregular rhythm, +S1, +S2 GI/Abdominal exam: PRESENT: normal bowel sounds, soft. ABSENT: firm, guarding, rebound, rigid, tenderness Gentrourinary exam: ABSENT: indwelling catheter Extremities exam: PRESENT: full ROM. ABSENT: pedal edema, tenderness Neurological exam: PRESENT: alert, awake, oriented to person, oriented to place, oriented to time, other - Chronic, mild slurring of speech from previous stroke (x3 years ago), some chronic right sided weakness noted Psychiatric exam: PRESENT: appropriate affect, normal mood. ABSENT: anxious Skin exam: PRESENT: dry, intact, warm Results Laboratory Results: WBC 5.5 10^3/uL (4.0-10.5) 07/31/20 05:09 RBC 4.17 10^6/uL (4.35-5.55) L 07/31/20 05:09 Hgb 13.2 g/dL (13.5-17.0) L 07/31/20 05:09 Hct 39.8 % (37.9-51.0) 07/31/20 05:09 MCV 95 fl (80-97) 07/31/20 05:09 MCH 31.7 pg (27.0-33.4) 07/31/20 05:09 MCHC 33.2 g/dL (32.0-36.0) 07/31/20 05:09 RDW 14.2 % (11.5-14.0) H 07/31/20 05:09 Plt Count 117 10^3/uL (150-450) L 07/31/20 05:09 Lymph % (Auto) 12.1 % (13-45) L 07/29/20 17:29 Crisp % (Auto) 6.9 % (3-13) 07/29/20 17:29 Eos % (Auto) 0.1 % (0-6) 07/29/20 17:29 Baso % (Auto) 0.3 % (0-2) 07/29/20 17:29 Absolute Neuts (auto) 9.9 10^3/uL (1.7-8.2) H 07/29/20 17:29 Absolute Lymphs (auto) 1.5 10^3/uL (0.5-4.7) 07/29/20 17:29 Absolute Monos (auto) 0.8 10^3/uL (0.1-1.4) 07/29/20 17:29 Absolute Eos (auto) 0.0 10^3/uL (0.0-0.6) 07/29/20 17:29 Absolute Basos (auto) 0.0 10^3/uL (0.0-0.2) 07/29/20 17:29 Seg Neutrophils % 80.6 % (42-78) H 07/29/20 17:29 PT 16.3 SEC (11.4-15.4) H 07/29/20 17:29 INR 1.29 07/29/20 17:29 VBG pH 7.40 (7.30-7.42) 07/29/20 17: VBG pCO2 38.9 mmHg (35-63) 07/29/20 17: VBG HCO3 23.7 mmol/L (20-32) 07/29/20 17: VBG Base Excess -0.8 mmol/L 07/29/20 17:29 Sodium 136.5 mmol/L (137-145) L 07/31/20 05:09 Potassium 3.6 mmol/L (3.6-5.0) 07/31/20 05:09 Chloride 105 mmol/L (98-107) 07/31/20 05:09 Carbon Dioxide 24 mmol/L (22-30) 07/31/20 05:09 Anion Gap 8 (5-19) 07/31/20 05:09 BUN 14 mg/dL (7-20) 07/31/20 05:09 Creatinine 1.22 mg/dL (0.52-1.25) 07/31/20 05:09 Est GFR ( Amer) > 60 (>60) 07/31/20 05:09 Est GFR (MDRD) Non-Af 57 (>60) L 07/31/20 05:09 Glucose 95 mg/dL (75-110) 07/31/20 05:09 Hemoglobin A1c % 4.8 % (4.7-6.0) 07/30/20 17:43 Lactic Acid 1.0 mmol/L (0.7-2.1) 07/29/20 23:38 Calcium 8.5 mg/dL (8.4-10.2) 07/31/20 05:09 Total Bilirubin 1.7 mg/dL (0.2-1.3) H 07/29/20 17:29 Direct Bilirubin 0.2 mg/dL (0.0-0.4) 07/29/20 17:29 Neonat Total Bilirubin Not Reportable 07/29/20 17:29 Neonat Direct Bilirubin Not Reportable 07/29/20 17:29 Neonat Indirect Bili Not Reportable 07/29/20 17:29 AST 52 U/L (17-59) 07/29/20 17:29 ALT 35 U/L (<50) 07/29/20 17:29 Alkaline Phosphatase 82 U/L (38-126) 07/29/20 17:29 Creatine Kinase 144 U/L (55-170) 07/29/20 17:29 C-Reactive Protein 154.9 mg/L (<10.0) H 07/29/20 17:29 Total Protein 7.1 g/dL (6.3-8.2) 07/29/20 17: Albumin 3.9 g/dL (3.5-5.0) 07/29/20 17:29 Urine Color YELLOW 07/29/20 20:54 Urine Appearance SLIGHTLY-CLOUDY 07/29/20 20:54 Urine pH 5.0 (5.0-9.0) 07/29/20 20:54 Ur Specific [place] 1.014 07/29/20 20:54 Urine Protein 100 mg/dL (NEGATIVE) H 07/29/20 20:54 Urine Glucose (UA) NEGATIVE mg/dL (NEGATIVE) 07/29/20 20:54 Urine Ketones NEGATIVE mg/dL (NEGATIVE) 07/29/20 20:54 Urine Blood LARGE (NEGATIVE) H 07/29/20 20:54 Urine Nitrite (Reflex) NEGATIVE (NEGATIVE) 07/29/20 20:54 Urine Bilirubin NEGATIVE (NEGATIVE) 07/29/20 20:54 Urine Urobilinogen 4.0 mg/dL (<2.0) H 07/29/20 20:54 Leukocyte Esterase Rfl MODERATE (NEGATIVE) H 07/29/20 20:54 Urine RBC (Auto) >182 /HPF 07/29/20 20:54 U Hyaline Cast (Auto) 5 /LPF 07/29/20 20:54 Urine WBC (Reflex) 25 /HPF 07/29/20 20:54 Squamous Epi Cells Auto 2 /HPF 07/29/20 20:54 Urine Mucus (Auto) RARE /LPF 07/29/20 20:54 Urine Ascorbic Acid NEGATIVE (NEGATIVE) 07/29/20 20:54 Blood Type A POSITIVE 07/29/20 18:18 Antibody Screen NEGATIVE 07/29/20 18:18 Plan Plan of Treatment: 1. For your urinary tract infection we are treating you with an antibiotic. Please take 250 mg Ceftin twice daily for 5 days starting on 08/01/2020. Please take medication in full. 2. For your difficulty with urinating I have a started you on tamsulosin 0.4 mg daily and finasteride 5 mg daily. 3. For your generalized weakness we have arranged home health physical therapy and Occupational Therapy. Please follow-up with your primary care provider within 1 week of discharge from the hospital. Time Spent: Greater than 30 Minutes Stroke Is this a Stroke Patient?: No Acute Heart Failure Is this a Heart Failure Patient?: No
== END 2020-07-31 15:49 | disposition home health service (06) | DRG 872 ==
LOC: ER 17:11 → EH 22:01 → 5TH 07-30 10:23 → 4W 07-30 20:10
PROVIDERS: ADMIT Family Medicine; ATTEND Physician Assistant
DX: A41.9 Sepsis, unspecified organism (principal); I69.351 Hemiplegia and hemiparesis following cerebral infarction affecting right dominant side; I48.21 Permanent atrial fibrillation; N10 Acute pyelonephritis; I10 Essential (primary) hypertension; R73.01 Impaired fasting glucose; B96.4 Proteus (mirabilis) (morganii) as the cause of diseases classified elsewhere; N40.0 Benign prostatic hyperplasia without lower urinary tract symptoms; E78.5 Hyperlipidemia, unspecified; E66.9 Obesity, unspecified; R47.81 Slurred speech; Z79.01 Long term (current) use of anticoagulants; Z79.899 Other long term (current) drug therapy; I25.2 Old myocardial infarction
CPT/HCPCS: 36415; 51701; 80048; 81001; 82550; 82803; 83036; 83605; 85027; 85610; 86140; 86850; 86900; 86901; 87040; 87070; 87086; 90471; 90686; 93005; 93010; 96361; 96365; 99285; G0008; J0696; J7030; J7120